=== PATIENT | female | born 1965 | race Caucasian/White ===

== ENCOUNTER 2019-10-30 20:29 | Inpatient (IN) ==
[2019-10-30 21:39] LABS: Appearance Urine Clear (Clear); Bilirubin Urine Negative (Negative); Blood Urine Negative (Negative); Color Urine Yellow; Glucose Urine UA 3+ (Negative); Ketones Urine Trace (Negative); Leukocyte Esterase Urine Negative (Negative); Nitrite Urine Negative (Negative); Protein Urine Negative (Negative); Specific Gravity Urine 1.026 (1.000-1.030); Urobilinogen Urine Negative (Negative)
[2019-10-30 21:40] LABS: Basophils # (auto) 0.01 K/uL (0-0.2); Basophils % (auto) 0.1 %; Eosinophils # (auto) 0.16 K/uL (0-0.5); Eosinophils % (auto) 1.8 %; Hematocrit (blood only) 49.6 % (37-47); Immature Granulocytes # (auto) 0.03 K/uL (0.00-0.02); Immature Granulocytes % (auto) 0.3 %; Lymphocytes # (auto) 2.77 K/uL (1.2-3.4); Lymphocytes % (auto) 31.7 %; Mean Corpuscular Hemoglobin 29.3 pg (25-34); Mean Corpuscular Hgb Conc 34.3 g/dL (32-36); Mean Corpuscular Volume 85.4 fL (80-100); Mean Platelet Volume 9.5 fL (7.4-10.4); Monocytes # (auto) 0.29 K/uL (0.11-0.59); Monocytes % (auto) 3.3 %; Neutrophils # (auto) 5.47 K/uL (1.4-6.5); Neutrophils % (auto) 62.8 %; Platelet Count 210 K/uL (130-400); RDW Coefficient of Variation 13.1 % (11.5-14.5); RDW Standard Deviation 40.6 fL (36.4-46.3); Red Blood Count 5.81 M/uL (4.2-5.4); White Blood Count 8.73 K/uL (4.8-10.8)
[2019-10-30 21:58] LABS: Albumin Level 3.4 gm/dl (3.4-5.0); BUN Creatinine Ratio 14.3 (10-20); Calcium 9.4 mg/dl (8.5-10.1); Creatinine Clr Calc Pharmacy 107.1 ml/min; Est GFR (Non-African American) 89.7; Potassium 3.9 mmol/L (3.5-5.1)
[2019-10-30 22:01] LABS: Amphetamines+Metham, Urine Neg (Neg); Barbiturates, Urine Neg (Neg); Benzodiazepine, Urine Neg (Neg); Cocaine, Urine Neg (Neg); MDMA (Ecstacy), Urine Neg (Neg); Methadone, Urine Neg (Neg); Opiate, Urine Neg (Neg); Phencyclidine, Urine Neg (Neg)
[2019-10-30 22:09] LABS: Albumin Globulin Ratio 0.9 (0.9-2); Bilirubin,Total 0.3 mg/dl (0.2-1); Globulin 3.9 gm/dl (2.5-4.0); Thyroid Stimulating Hormone 1.73 uIu/ml (0.300-4.500); Total Protein 7.3 gm/dl (6.4-8.2)
[2019-10-30 22:11] LABS: Acetaminophen < 2 ug/ml (10-30); Salicylate 2.4 mg/dl (2.8-20)
--- NOTE | 2019-10-30 22:19 | Emergency Department Note ---
Entered by Racquel Reyes acting as a scribe for Tahir Miller M.D. History of Present Illness General Chief complaint: Mental Health Evaluation Stated complaint: Mental Health Eval, preadmission at [facility] Time Seen by Provider: 10/30/19 20:58 Source: patient History of Present Illness Onset (ago): day(s) (several) Location: head Severity: similar to prior episodes Pain Consistency: + other (persistent) Quality: + other (suicidal ideations) Associated symptoms: + other (positive feeling overwhelmed; positive not sleeping well; positive thinking about "ending it all"; positive plan to overdose on pills or walk into traffic; negative suicide attempt; positive thoughts of "taking her grandchildren with her"; ) The patient is a 54 year old female with PMHx of diabetes and HTN who presents to the Emergency Room with complaints of persistent suicidal ideations that began several days prior to arrival. The patient states that over the last several weeks she has been feeling overwhelmed with life and "everything in general". The patient reports a lot of family stress, stating that she has custody of her 3 young grandchildren, one of which has serious health issues, and states that her youngest daughter recently moved back in with her. She states that she has not been sleeping well during this time. The patient states that over the past several days she has been thinking about "ending it all". She states that she has considered overdosing on pills or walking out into traffic. The patient states that she does not want to commit suicide as she "can't do that" to her grandchildren. She denies any attempts at suicide. The patient states that she has thought about taking the grandchildren "with her," but states "I can't do that, I care too much about them." The patient states that she has a therapist and psychiatrist, and states that after seeing her psychiatrist for feeling overwhelmed she was told to be seen in the ED if things became worse. The patient states that she was previously seen 27 years ago for similar symptoms, but states that she has not had symptoms since then. The patient denies drug or alcohol issues. Home Medications Home Medications Medication Instructions Recorded Confirmed Type Basalgar Insulin 40 units INJ BID 10/30/19 10/30/19 History atorvastatin 40 mg PO DAILY 10/30/19 10/30/19 History clonazepam [Klonopin] 0.5 mg PO BID 10/30/19 10/30/19 History lisinopril 2.5 mg PO DAILY 10/30/19 10/30/19 History venlafaxine [Effexor XR] 150 mg PO DAILY 10/30/19 10/30/19 History Allergies Allergy/AdvReac Type Severity Reaction Status Date / Time cephalexin [From Keflex] Allergy Hives Verified 10/30/19 22:09 naproxen AdvReac Gastrointestinal Verified 10/30/19 22:09 Upset Past Med/Surg History Medical History Diabetes Hypertension Family History Other No pertinent family history in first degree relatives Social History Preferred Language: [place] Island[place] Feels Safe at Home: Yes Smoking Status: Current every day smoker Tobacco Type: cigarettes ; Review of Systems See HPI for pertinent positives & negatives. and A total of 10 systems reviewed and were otherwise negative Physical Exam Vital Signs Vital Signs - 24 hr 10/30/19 20:30 10/31/19 00:14 Temperature 37.1 C Temperature Source Oral Pulse Rate 97 H Pulse Rate [Right Finger] 91 H Respiratory Rate 20 16 Respiratory Effort / Characteristics Non-Labored Spontaneous Respiratory Depth Normal Blood Pressure 128/88 Blood Pressure [Right Arm] 127/75 Blood Pressure Mean 101 Blood Pressure Mean [Right Arm] 92 Blood Pressure Position Lying Blood Pressure Position [Right Arm] Lying Pulse Oximetry 96 94 Oxygen Delivery Method Room Air Room Air Sepsis Recent Fever Within 48 Hours No Sepsis New/Unexplained Change in Mental Status No Sepsis Action Taken by Nursing No Action Required GENERAL: Awake, alert, on litter HENT: Normocephalic, atraumatic. EYES: Normal conjunctiva. Sclera non-icteric. RESPIRATORY: Clear to auscultation. No wheezes. Normal respiratory effort. CARDIAC: Normal rate. Normal rhythm. Extremities warm and well perfused. GI: Soft, non-distended. No tenderness to palpation. NEURO: Normal sensorium. No gross motor deficits noted. No facial droop. SKIN: Warm and dry. No rash or jaundice noted. PSYCH: Endorses SI with plan. Transient HI with grandchildren. Flat affect. Course Course 2102: Past medical records reviewed. The patient was evaluated in room A5. A complete history and physical exam was performed. 0056: I discussed the case with the psychiatric case planner who states that the patient has been accepted for further evaluation at [address] [place] [address]. Administered Medications Discontinued Medications Insulin Glargine (Lantus Per Unit) 40 units SQ NOW STA Stop: 10/30/19 23:49 Last Admin: 10/31/19 00:16 Dose: 40 units Documented by: [id number] Cosigned by: [id number] Non-Formulary Medication (Basalgar Insulin) 40 units INJ BID DIANA Stop: 11/29/19 23:44 Last Admin: 10/31/19 00:18 Dose: Not Given Documented by: [id number] Medical Decision Making Differential Diagnosis Differential diagnoses considered include mood disorder, infection, hypoglycemia, electrolyte abnormalities, cardiac sources, intracerebral event, toxicologic, neurologic, as well as others. Medical Records Attestation: I reviewed the patient's medical records. Home Medications Current Medication List: was personally reviewed by me Laboratory Data Attestation: I reviewed the patient's lab results. Result diagrams: 10/30/19 21:29 10/30/19 21:29 Lab Results 10/30/19 10/30/19 10/30/19 Range/Units 21:20 21:20 21:29 WBC 8.73 (4.8-10.8) K/uL RBC 5.81 H (4.2-5.4) M/uL Hgb 17.0 H (12.0-16.0) g/dL Hct 49.6 H (37-47) % MCV 85.4 (80-100) fL MCH 29.3 (25-34) pg MCHC 34.3 (32-36) g/dL RDW Std Deviation 40.6 (36.4-46.3) fL RDW Coeff of Donna 13.1 (11.5-14.5) % Plt Count 210 (130-400) K/uL MPV 9.5 (7.4-10.4) fL Immature Gran % (Auto) 0.3 % Neut % (Auto) 62.8 % Lymph % (Auto) 31.7 % Stanton % (Auto) 3.3 % Eos % (Auto) 1.8 % Baso % (Auto) 0.1 % Immature Gran # (Auto) 0.03 H (0.00-0.02) K/uL Neut # (Auto) 5.47 (1.4-6.5) K/uL Lymph # (Auto) 2.77 (1.2-3.4) K/uL Stanton # (Auto) 0.29 (0.11-0.59) K/uL Eos # (Auto) 0.16 (0-0.5) K/uL Baso # (Auto) 0.01 (0-0.2) K/uL Sodium (136-145) mmol/L Potassium (3.5-5.1) mmol/L Chloride (98-107) mmol/L Carbon Dioxide (21-32) mmol/L Anion Gap (3-11) BUN (7-18) mg/dl Creatinine (0.6-1.2) mg/dl Est Cr Clr Drug Dosing ml/min Est GFR ( Amer) Est GFR (Non-Af Amer) BUN/Creatinine Ratio (10-20) Glucose (70-99) mg/dl POC Glucose (70-99) Calcium (8.5-10.1) mg/dl Total Bilirubin (0.2-1) mg/dl AST (15-37) U/L ALT (12-78) U/L Alkaline Phosphatase (45-117) U/L Total Protein (6.4-8.2) gm/dl Albumin (3.4-5.0) gm/dl Globulin (2.5-4.0) gm/dl Albumin/Globulin Ratio (0.9-2) TSH (0.300-4.500) uIu/ml Urine Color Yellow Urine Appearance Clear (Clear) Urine pH 5.0 (4.5-7.5) Ur Specific [place] 1.026 (1.000-1.030) Urine Protein Negative (Negative) Urine Glucose (UA) 3+ H (Negative) Urine Ketones Trace H (Negative) Urine Blood Negative (Negative) Urine Nitrite Negative (Negative) Urine Bilirubin Negative (Negative) Urine Urobilinogen Negative (Negative) Ur Leukocyte Esterase Negative (Negative) Salicylates (2.8-20) mg/dl Urine Opiates Screen Neg (Neg) Ur Methadone, Qual Neg (Neg) Acetaminophen (10-30) ug/ml Urine Barbiturates Neg (Neg) Ur Phencyclidine (PCP) Neg (Neg) U Amphetamin/Meth Scrn Neg (Neg) MDMA (Ecstasy) Screen Neg (Neg) U Benzodiazepines Scrn Neg (Neg) Ur Cocaine Metabolite Neg (Neg) U Marijuana (THC) Screen Neg (Neg) Ethyl Alcohol mg/dL (0-3) mg/dl 10/30/19 10/30/19 10/30/19 Range/Units 21:29 21:29 21:29 WBC (4.8-10.8) K/uL RBC (4.2-5.4) M/uL Hgb (12.0-16.0) g/dL Hct (37-47) % MCV (80-100) fL MCH (25-34) pg MCHC (32-36) g/dL RDW Std Deviation (36.4-46.3) fL RDW Coeff of Donna (11.5-14.5) % Plt Count (130-400) K/uL MPV (7.4-10.4) fL Immature Gran % (Auto) % Neut % (Auto) % Lymph % (Auto) % Stanton % (Auto) % Eos % (Auto) % Baso % (Auto) % Immature Gran # (Auto) (0.00-0.02) K/uL Neut # (Auto) (1.4-6.5) K/uL Lymph # (Auto) (1.2-3.4) K/uL Stanton # (Auto) (0.11-0.59) K/uL Eos # (Auto) (0-0.5) K/uL Baso # (Auto) (0-0.2) K/uL Sodium 134 L (136-145) mmol/L Potassium 3.9 (3.5-5.1) mmol/L Chloride 100 (98-107) mmol/L Carbon Dioxide 27 (21-32) mmol/L Anion Gap 7.0 (3-11) BUN 11 (7-18) mg/dl Creatinine 0.75 (0.6-1.2) mg/dl Est Cr Clr Drug Dosing 107.1 ml/min Est GFR ( Amer) 104.0 Est GFR (Non-Af Amer) 89.7 BUN/Creatinine Ratio 14.3 (10-20) Glucose 297 H (70-99) mg/dl POC Glucose (70-99) Calcium 9.4 (8.5-10.1) mg/dl Total Bilirubin 0.3 (0.2-1) mg/dl AST 13 L (15-37) U/L ALT 23 (12-78) U/L Alkaline Phosphatase 162 H (45-117) U/L Total Protein 7.3 (6.4-8.2) gm/dl Albumin 3.4 (3.4-5.0) gm/dl Globulin 3.9 (2.5-4.0) gm/dl Albumin/Globulin Ratio 0.9 (0.9-2) TSH 1.730 (0.300-4.500) uIu/ml Urine Color Urine Appearance (Clear) Urine pH (4.5-7.5) Ur Specific [place] (1.000-1.030) Urine Protein (Negative) Urine Glucose (UA) (Negative) Urine Ketones (Negative) Urine Blood (Negative) Urine Nitrite (Negative) Urine Bilirubin (Negative) Urine Urobilinogen (Negative) Ur Leukocyte Esterase (Negative) Salicylates 2.4 L (2.8-20) mg/dl Urine Opiates Screen (Neg) Ur Methadone, Qual (Neg) Acetaminophen < 2 L (10-30) ug/ml Urine Barbiturates (Neg) Ur Phencyclidine (PCP) (Neg) U Amphetamin/Meth Scrn (Neg) MDMA (Ecstasy) Screen (Neg) U Benzodiazepines Scrn (Neg) Ur Cocaine Metabolite (Neg) U Marijuana (THC) Screen (Neg) Ethyl Alcohol mg/dL < 3.0 (0-3) mg/dl 10/30/19 Range/Units 23:35 WBC (4.8-10.8) K/uL RBC (4.2-5.4) M/uL Hgb (12.0-16.0) g/dL Hct (37-47) % MCV (80-100) fL MCH (25-34) pg MCHC (32-36) g/dL RDW Std Deviation (36.4-46.3) fL RDW Coeff of Odnna (11.5-14.5) % Plt Count (130-400) K/uL MPV (7.4-10.4) fL Immature Gran % (Auto) % Neut % (Auto) % Lymph % (Auto) % Stanton % (Auto) % Eos % (Auto) % Baso % (Auto) % Immature Gran # (Auto) (0.00-0.02) K/uL Neut # (Auto) (1.4-6.5) K/uL Lymph # (Auto) (1.2-3.4) K/uL Stanton # (Auto) (0.11-0.59) K/uL Eos # (Auto) (0-0.5) K/uL Baso # (Auto) (0-0.2) K/uL Sodium (136-145) mmol/L Potassium (3.5-5.1) mmol/L Chloride (98-107) mmol/L Carbon Dioxide (21-32) mmol/L Anion Gap (3-11) BUN (7-18) mg/dl Creatinine (0.6-1.2) mg/dl Est Cr Clr Drug Dosing ml/min Est GFR ( Amer) Est GFR (Non-Af Amer) BUN/Creatinine Ratio (10-20) Glucose (70-99) mg/dl POC Glucose 252 H (70-99) Calcium (8.5-10.1) mg/dl Total Bilirubin (0.2-1) mg/dl AST (15-37) U/L ALT (12-78) U/L Alkaline Phosphatase (45-117) U/L Total Protein (6.4-8.2) gm/dl Albumin (3.4-5.0) gm/dl Globulin (2.5-4.0) gm/dl Albumin/Globulin Ratio (0.9-2) TSH (0.300-4.500) uIu/ml Urine Color Urine Appearance (Clear) Urine pH (4.5-7.5) Ur Specific [place] (1.000-1.030) Urine Protein (Negative) Urine Glucose (UA) (Negative) Urine Ketones (Negative) Urine Blood (Negative) Urine Nitrite (Negative) Urine Bilirubin (Negative) Urine Urobilinogen (Negative) Ur Leukocyte Esterase (Negative) Salicylates (2.8-20) mg/dl Urine Opiates Screen (Neg) Ur Methadone, Qual (Neg) Acetaminophen (10-30) ug/ml Urine Barbiturates (Neg) Ur Phencyclidine (PCP) (Neg) U Amphetamin/Meth Scrn (Neg) MDMA (Ecstasy) Screen (Neg) U Benzodiazepines Scrn (Neg) Ur Cocaine Metabolite (Neg) U Marijuana (THC) Screen (Neg) Ethyl Alcohol mg/dL (0-3) mg/dl Blood Pressure Blood Pressure Findings: Elevated blood pressure Blood Pressure Disposition: elevated BP felt to be situational MDM Narrative Patient is a 54-year-old female presenting today referred from the [facility] due to worsening depression with suicidal and some transient homicidal thoughts. States lots of stress at home regarding her grandchildren prickly one with medical problems. States that over the last several days has thoughts of either overdosing on medications or walking in front of him truck on the road. States she had transiently thought it may be taking her grandchildren with her but states she would not do that. Denies attempts. Distant history of similar several decades ago. Currently sees a counselor and psychiatrist in [place]. States compliance with home medication. Medical clearance completed. Seen by psychiatric case planner. Patient is agreeable for voluntary inpatient t reatment I believe this is indicated given her suicidal thoughts and tendencies as well as the statements although transient of possible concern for her grandchildren who live with her. Bed search was initiated. Referral to [facility] was made. Given her evening dose of insulin. Patient was accepted to [facility] for further inpatient psychiatric care on a 201. Impression & Plan Feeling suicidal, Mood disorder Discharge Plan Visit Data *Final* Discharge Date/Time: 10/31/19 01:01 Chief Complaint: Mental Health Evaluation Stated Complaint: Mental Health Eval, preadmission at [facility] ED Provider: Tahir Miller Discharge Problem: Feeling suicidal, Mood disorder Patient Disposition: Admitted As Inpatient Discharge Instructions Interventions: ED Discharge Assessment Last Done: 10/31/19 01:01 The celestino's documentation has been prepared under my direction and personally reviewed by me in its entirety. I confirm that the note above accurately reflects all work, treatment, procedures, and medical decision making performed by me.
[2019-10-30] MEDS ORDERED: INSULIN GLARGINE INJ SCH (23:45)
[2019-10-30] MEDS ORDERED: [UNRECOGNIZED DRUG - OTHER] INJ SCH (23:45)
[2019-10-30] MEDS ORDERED: LANTUS PER UNIT CHARGE SQ STA (23:48)
[2019-10-31] MEDS ORDERED: BISMUTH SUBSALICYLATE PER ML OMNICELL CHARGE PO PRN (01:35)
[2019-10-31] MEDS ORDERED: MAGNESIUM HYDROXIDE SUSP 30 ML UDC PO PRN (01:35)
[2019-10-31] MEDS ORDERED: NICOTINE POLACRILEX 2 MG GUM MT PRN (01:35)
[2019-10-31] MEDS ORDERED: ALUMINUM/MAGNESIUM SUSP 30 ML UDC PO PRN (01:35)
[2019-10-31] MEDS ORDERED: hydrOXYzine HCl 10 MG TAB PO PRN (01:35)
[2019-10-31] MEDS ORDERED: SODIUM CHLORIDE 0.65% NA SOLN 45 ML (OCEAN) PRN (01:35)
[2019-10-31] MEDS ORDERED: ACETAMINOPHEN 325 MG TAB PO PRN (01:35)
[2019-10-31] MEDS ORDERED: GLUCAGON FOR INJ 1 MG VIAL IM PRN (04:00)
[2019-10-31] MEDS ORDERED: GLUCOSE 40% GEL 15 GM TUBE PO PRN (04:00)
[2019-10-31] MEDS ORDERED: CARBOHYDRATES FOR HYPOGLYCEMIA PO PRN (04:00)
[2019-10-31] MEDS ORDERED: GLUCOSE 10 TABS/TUBE PO PRN (04:00)
[2019-10-31] MEDS ORDERED: DEXTROSE 50% 50 ML SYRINGE IV PRN (04:00)
[2019-10-31 06:12] LABS: Estimated Average Glucose 272 mg/dl; Hemoglobin A1C 11.1 % (4.5-5.6)
[2019-10-31] MEDS: VENLAFAXINE HCL XR 150 MG CAPXR PO SCH (08:28)
--- NOTE | 2019-10-31 08:33 | History & Physical ---
Date of Service October 31, 2019 Impression / Recommendations Impression 54-year-old female with a history of depression, anxiety, and poorly controlled diabetes who presents with worsening mood and suicidal ideation in the context of multiple psychosocial stressors. She agreed to venlafaxine titration, and would like to explore ways to manage stressors at home, including custody of 3 young grandchildren, 1 of whom has severe medical problems, and difficulties with adult daughter with BPD who is living with them and is disruptive. We will involve the diabetic pharmacist and educated her regarding her poorly controlled diabetes, and will explore ways to increase her supports at home. Inpatient treatment is medically necessary due to the severity of symptoms and risk for suicide if discharged prematurely. (1) Depression: 10/31 - Reviewed diagnosis and treatment options, including medication, therapy, and discussion of psychosocial stressors/supports. - Increase venlafaxine XR to 225mg daily to target mood and anxiety. -Continue home dose of clonazepam. -Coordinate w/ OP psychiatrist and therapist, explore options to increase supports (?BCM) -Family meeting with . Depression Type: major depressive disorder Major depression recurrence: recurrent Active/Remission status: currently active Major depression episode severity: severe Psychotic features: without psychotic features Qualified Code(s): F33.2 - Major depressive disorder, recurrent severe without psychotic features Present on Admission?: Yes (2) Anxiety: 10/31 - Increase SNRI as above, continue clonazepam. -Encourage group attendance and participation, work on healthy coping skills and discharge safety. Present on Admission?: Yes (3) Diabetes: 10/31 -continue insulin, consult diabetic pharmacist, provide diabetes education. -Diabetic diet. Present on Admission?: Yes (4) Hypertension: Present on Admission?: Yes Inventory Assets Strengths: Willing for treatment, supportive , has outpatient providers Needs: Improved supports and coping mechanisms Risk Factors Assessment Male: No : Yes Do You Have Access To A Gun?: No Health Problems: Yes Mental Health Diagnoses: Yes Substance Use Disorders: No Previous Attempt: No Family History of Suicide: No Previous Psychiatric Hospitalization: Yes Hopelessness: Yes Smoker: Yes Protective Factors Assessment : Yes Responsible for Young Children: Yes Employed: No Stable Relationships: Yes Supportive Family: No Good Rapport with Provider: Yes Psychiatric History Identifying Data CARLOS JONES is a 54-year-old F who currently lives in [place] with her and 3 grandchildren, has a history of depression and anxiety, and was admitted on 10/31/19 00:48 on a 201 voluntary commitment for suicidal ideation with multiple plans. Chief Complaint "Feeling overwhelmed for a couple of weeks, and last few days I just been thinki ng of ways I could end it". History of Present Illness Patient presented to the ER 10/30/19 with worsening depression and suicidal ideation. She had gone to [place] and was sent to the ER as they had no beds. Her admission labs were normal with the exception of Hgb A1C of 11.1%. On my assessment , she reports depression has been worsening for the past few weeks in the context of multiple stressors - states both of her daughters have BPD, and one also has schizoaffective d/o, and the patient and her have custody of her 3 young children and are rasing them, while her other daughter just moved back in with them and has been "screaming at me and the kids a lot." One of her grandchildren has severe diabetes and is on dialysis, waiting for a kidney transplant. States she has been thinking about wants to end her life as she feels so overwhelmed, including overdosing on medication or walking into traffic. She even thought about "taking them with me," meaning her grandchildren, but says she has not plan or intent to do that, "I would never hurt them." She sought treatment as she did not want to hurt herself or anyone else, and states her grandchildren are protective. States her daughter makes promises to her children that she can't uphold, and this upsets the children. She reports poor self care, not eating properly, poor sleep (staying up late, waking up after a few hours), low energy, anxiety with "mind racing all the time," and feeling "everyone wants something from me, I don't get anything back from anybody, and don't have anything left to give." States she was brought up "if you get sick, you just keep going, have to be the strong one." Has been taking clonazepam twice a day recently. Reports being on venlafaxine for over year, and thinks her dose was increased a few months ago. Denies h/o psychosis, luis, PTSD. Past Psychiatric History Current Psychiatric Diagnosis: Major Depressive Disorder Outpatient Services: Psychiatrist Dr. Chandler and therapist at [facility] in [place] Previous Psych Admissions: [facility] 27 years ago for SI Do You Have Access To A Gun?: No History of Previous Suicide Attempt: No Past Medication Trials: fluoxetine - ineffective May be others, can't recall Allergies Allergy/AdvReac Type Severity Reaction Status Date / Time cephalexin [From Keflex] Allergy Hives Verified 10/30/19 22:09 naproxen AdvReac Gastrointestinal Verified 10/30/19 22:09 Upset Home Medications Home Medications Medication Instructions Recorded Confirmed Type Basalgar Insulin 40 units INJ BID 10/30/19 10/30/19 History atorvastatin 40 mg PO DAILY 10/30/19 10/30/19 History clonazepam [Klonopin] 0.5 mg PO BID 10/30/19 10/30/19 History lisinopril 2.5 mg PO DAILY 10/30/19 10/30/19 History venlafaxine [Effexor XR] 150 mg PO DAILY 10/30/19 10/30/19 History Family History Family History of: Other-List under Comment Family Mental Health History Comment: Daughter: BPD, Depression, ?schizoaffective Other daughter with BPD Alcohol History Hx of Alcohol Use Over the Past 12 Months: No Smoking Use Have You Smoked or Used Tobacco Products in the Last 30 Days: Yes tobacco type: cigarettes Smoking Status: Current every day smoker Smoking packs per day: 0.75 Substance History Hx of Prescription Med Misuse Over the Past 12 Months: No Hx of Over the Counter Med Misuse Over the Past 12 Months: No Hx of Inhalent Misuse Over the Past 12 Months: No Hx of Organic Substance Use Over the Past 12 Months: No Hx of Illegal Substances/Street Drug Use Over Past 12 Months: No Problems as a Result of Past Substance Use: None Identified Personal History Living Arrangements: Home Living Arrangements Comments: in [place] with , 3 grandchildren, and their adult daughter and son (32) Childhood: Father was in the , so "grew up everywhere." Highest Grade Completed: High School Graduate Highest Grade Completed Comment: Denies that she was in special education classes Employment Status: Disabled ("arthritis and my legs") Marital Status: Number Of Children: 4 Beliefs That Will Affect Care: None Current Legal Problems: No Hx Traumatic Life Events: No Patient History Medical History Diabetes Hypertension Family History Other No pertinent family history in first degree relatives Social History Preferred Language: Bermudian Communication Ability: Effective Train Reservation Clerk Required: No Beliefs That Will Affect Care: None Feels Safe at Home: Yes Smoking Status: Current every day smoker Tobacco Type: cigarettes ; Review of Systems Review of Systems: All systems reviewed & are unremarkable except as noted in HPI & below chronic shoulder, hip, hand, knee, ankle pain Physical Exam Psychiatric: Orientation: alert, oriented x 3 and cooperative Obese, older than states age, braless. Walks slowly with cane. Eye Contact: + fair eye contact Motor Behavior: no abnormal motor movements slowed speech, soft Affect: + depressed affect, + constricted affect and mood congruent with affect Mood: + depressed mood Thought Process: goal directed thought process and + concrete thought process Thought Content: + hopelessness and + guilt Suicidal Thoughts: + reports suicidal thoughts Homicidal Thoughts: denies homicidal thoughts Hallucinations: no auditory hallucinations and no visual hallucinations Cognition: recent memory grossly intact, remote memory grossly intact, attention grossly intact and language grossly intact Insight: + fair insight Judgement: + fair judgement Vital Signs (Past 24 Hours): Last Vital Signs Temp 36.7 C 10/31/19 06:00 Pulse 103 H 10/31/19 06:00 Resp 18 10/31/19 06:00 BP 133/82 10/31/19 06:00 Pulse Ox 95 10/31/19 01:44 Exam Statement: A physical exam was performed in the ER prior to admission to the unit by Dr. Miller. I accept that physical as correct/medical clearance for the inpatient physical exam. Results & Data Laboratory Results Laboratory Results - last 24 hr 10/30/19 10/30/19 10/30/19 21:20 21:20 21:29 WBC 8.73 RBC 5.81 H Hgb 17.0 H Hct 49.6 H MCV 85.4 MCH 29.3 MCHC 34.3 RDW Std Deviation 40.6 RDW Coeff of Donna 13.1 Plt Count 210 MPV 9.5 Immature Gran % (Auto) 0.3 Neut % (Auto) 62.8 Lymph % (Auto) 31.7 [place] % (Auto) 3.3 Eos % (Auto) 1.8 Baso % (Auto) 0.1 Immature Gran # (Auto) 0.03 H Neut # (Auto) 5.47 Lymph # (Auto) 2.77 [place] # (Auto) 0.29 Eos # (Auto) 0.16 Baso # (Auto) 0.01 Sodium Potassium Chloride Carbon Dioxide Anion Gap BUN Creatinine Est Cr Clr Drug Dosing Est GFR ( Amer) Est GFR (Non-Af Amer) BUN/Creatinine Ratio Glucose POC Glucose Estimat Average Glucose Hemoglobin A1c Calcium Total Bilirubin AST ALT Alkaline Phosphatase Total Protein Albumin Globulin Albumin/Globulin Ratio TSH Urine Color Yellow Urine Appearance Clear Urine pH 5.0 Ur Specific [place] 1.026 Urine Protein Negative Urine Glucose (UA) 3+ H Urine Ketones Trace H Urine Blood Negative Urine Nitrite Negative Urine Bilirubin Negative Urine Urobilinogen Negative Ur Leukocyte Esterase Negative Salicylates Urine Opiates Screen Neg Ur Methadone, Qual Neg Acetaminophen Urine Barbiturates Neg Ur Phencyclidine (PCP) Neg U Amphetamin/Meth Scrn Neg MDMA (Ecstasy) Screen Neg U Benzodiazepines Scrn Neg Ur Cocaine Metabolite Neg U Marijuana (THC) Screen Neg Ethyl Alcohol mg/dL 10/30/19 10/30/19 10/30/19 21:29 21:29 21:29 WBC RBC Hgb Hct MCV MCH MCHC RDW Std Deviation RDW Coeff of Donna Plt Count MPV Immature Gran % (Auto) Neut % (Auto) Lymph % (Auto) [place] % (Auto) Eos % (Auto) Baso % (Auto) Immature Gran # (Auto) Neut # (Auto) Lymph # (Auto) [place] # (Auto) Eos # (Auto) Baso # (Auto) Sodium 134 L Potassium 3.9 Chloride 100 Carbon Dioxide 27 Anion Gap 7.0 BUN 11 Creatinine 0.75 Est Cr Clr Drug Dosing 107.1 Est GFR ( Amer) 104.0 Est GFR (Non-Af Amer) 89.7 BUN/Creatinine Ratio 14.3 Glucose 297 H POC Glucose Estimat Average Glucose Hemoglobin A1c Calcium 9.4 Total Bilirubin 0.3 AST 13 L ALT 23 Alkaline Phosphatase 162 H Total Protein 7.3 Albumin 3.4 Globulin 3.9 Albumin/Globulin Ratio 0.9 TSH 1.730 Urine Color Urine Appearance Urine pH Ur Specific [place] Urine Protein Urine Glucose (UA) Urine Ketones Urine Blood Urine Nitrite Urine Bilirubin Urine Urobilinogen Ur Leukocyte Esterase Salicylates 2.4 L Urine Opiates Screen Ur Methadone, Qual Acetaminophen < 2 L Urine Barbiturates Ur Phencyclidine (PCP) U Amphetamin/Meth Scrn MDMA (Ecstasy) Screen U Benzodiazepines Scrn Ur Cocaine Metabolite U Marijuana (THC) Screen Ethyl Alcohol mg/dL < 3.0 10/30/19 10/30/19 10/31/19 21:29 23:35 08:08 WBC RBC Hgb Hct MCV MCH MCHC RDW Std Deviation RDW Coeff of Donna Plt Count MPV Immature Gran % (Auto) Neut % (Auto) Lymph % (Auto) [place] % (Auto) Eos % (Auto) Baso % (Auto) Immature Gran # (Auto) Neut # (Auto) Lymph # (Auto) [place] # (Auto) Eos # (Auto) Baso # (Auto) Sodium Potassium Chloride Carbon Dioxide Anion Gap BUN Creatinine Est Cr Clr Drug Dosing Est GFR ( Amer) Est GFR (Non-Af Amer) BUN/Creatinine Ratio Glucose POC Glucose 252 H 145 H Estimat Average Glucose 272 Hemoglobin A1c 11.1 H Calcium Total Bilirubin AST ALT Alkaline Phosphatase Total Protein Albumin Globulin Albumin/Globulin Ratio TSH Urine Color Urine Appearance Urine pH Ur Specific [place] Urine Protein Urine Glucose (UA) Urine Ketones Urine Blood Urine Nitrite Urine Bilirubin Urine Urobilinogen Ur Leukocyte Esterase Salicylates Urine Opiates Screen Ur Methadone, Qual Acetaminophen Urine Barbiturates Ur Phencyclidine (PCP) U Amphetamin/Meth Scrn MDMA (Ecstasy) Screen U Benzodiazepines Scrn Ur Cocaine Metabolite U Marijuana (THC) Screen Ethyl Alcohol mg/dL Current Inpatient Medications Current Inpatient Medications: Current Inpatient Medications Acetaminophen (Tylenol) 650 mg PO Q4H PRN PRN Reason: Headache or Minor Fever Stop: 11/30/19 01:34 Al Hydrox/Mg Hydrox/Simethicone (Maalox) 30 ml PO Q4H PRN PRN Reason: GI Upset Stop: 11/30/19 01:34 Atorvastatin Calcium (Lipitor) 40 mg PO HS DIANA Stop: 11/30/19 21:59 Bismuth Subsalicylate (Kaopectate) 15 ml PO PRN PRN PRN Reason: Loose Stool Stop: 11/30/19 01:34 Clonazepam (Klonopin) 0.5 mg PO BID DIANA Stop: 11/30/19 08:59 Dextrose (Dextrose 50%) 25 - 50 ml IV UD PRN; Protocol PRN Reason: Hypoglycemia Protocol Stop: 11/30/19 03:59 Glucagon (Glucagen) 1 mg IM UD PRN; Protocol PRN Reason: Hypoglycemia Protocol Stop: 11/30/19 03:59 Glucose (Glucose 40%) 15 - 30 gm PO UD PRN; Protocol PRN Reason: Hypoglycemia Protocol Stop: 11/30/19 03:59 Glucose (Dex4 Glucose) 4 - 8 tabs PO UD PRN; Protocol PRN Reason: Hypoglycemia Protocol Stop: 11/30/19 03:59 Hydroxyzine HCl (Vistaril) 50 mg PO HSZ PRN PRN Reason: Insomnia Stop: 11/30/19 01:34 Hydroxyzine HCl (Vistaril) 25 mg PO Q4H PRN PRN Reason: Anxiety Stop: 11/30/19 01:34 Insulin Glargine (Lantus Solostar Pen) 40 units SQ BID [facility] Stop: 11/30/19 08:59 [facility]inop[facility]) [facility] Stop: 11/30/19 08:59 Magnesium Hydroxide (Milk Of Magnesia) 30 ml PO DAILY PRN PRN Reason: Constipation Stop: 11/30/19 01:34 Miscellaneous (Remove Nicoderm Patch) 1 ea N/A DAILY@0859 [facility] Stop: 11/30/19 08:58 Miscellaneous (Carbohydrates For Hypoglycemia) 15 - 30 gm PO UD PRN PRN Reason: Hypoglycemia Treatment Stop: 11/30/19 03:59 Nicotine (Nicoderm Cq) 14 mg TD [facility] Stop: 11/30/19 08:59 Nicotine Polacrilex (Nicorette 2mg) 1 piece MT PRN PRN PRN Reason: Nicotine Withdrawal Stop: 11/30/19 01:34 Sodium Chloride (Early Nasal) 1 - 2 sprays NA PRN PRN PRN Reason: Nasal Dryness/Congestion Stop: 11/30/19 01:34 Venlafaxine HCl (Effexor Extended Release) 150 mg PO QAM [facility] Stop: 11/30/19 08:59
[2019-10-31] MEDS: NICOTINE 14 MG/24 HR PATCH TD SCH (08:35)
[2019-10-31] MEDS: clonazePAM 0.5 MG TAB PO SCH ×2 (08:36→21:45)
[2019-10-31] MEDS ORDERED: INSULIN GLARGINE SOLOSTAR 100 UNITS/ML 3 ML PEN SQ SCH (09:00)
[2019-10-31] MEDS ORDERED: PHARMACY GLYCEMIC MGMT CONSULT PRN (10:28)
[2019-10-31] MEDS: VENLAFAXINE HCL XR 75 MG CAPXR PO SCH (11:44)
[2019-10-31] MEDS: INSULIN ASPART 100 UNITS/ML 3 ML PEN SC SCH ×3 (13:26→21:52)
--- NOTE | 2019-10-31 13:42 | Pharmacy Report ---
Glycemic Control Consultation - Date of Service October 31, 2019 - Scope Scope: Glycemic Pharmacist consulted by Dr Cintron on 10/31/19 for glycemic control and to write orders per [facility] inpatient glycemic control protocol - Objective Weight: 119.7 kg Accuchecks BSG (last 24hrs): 10/30/19 10/30/19 10/31/19 21:29 23:35 08:08 Glucose 297 H POC Glucose 252 H 145 H 10/31/19 12:32 Glucose POC Glucose 208 H Laboratory Data (last 24hrs): 10/30/19 21:29 Potassium 3.9 Carbon Dioxide 27 Anion Gap 7.0 Creatinine 0.75 Est Cr Clr Drug Dosing 107.1 HbA1c: Hemoglobin A1c 11.1 % (4.5-5.6) H 10/30/19 21:29 - Recent Pertinent Medications Outpatient Anti-diabetic Regimen: * Basaglar 40 units SC BID * A1c = 11.1 % 10/30/19 The patient is currently receiving: * Basal insulin: Lantus 40 units every 12 hours Risk Factors for Insulin Resistance: * Diet: T2DM - Assessment & Plan Assessment & Plan: ASSESSMENT: * LL is a 54 year old female patient who presented to [facility] on 10/30/19 with worsening mood and suicidal ideation * Patient has poorly controlled diabetes as an outpatient based on A1c of 11.1% * Of note: patient has multiple current psychosocial stressors, which may be negatively affecting her ability to manage her diabetes * Patient received 80 units of basal insulin yesterday (equivalent to outpatient dose), no Novolog ordered at time of consult * BSG on admission was 297 mg/dL * Fasting BSG this morning of 145 mg/dL PLAN FOR INPATIENT GLYCEMIC CONTROL: * Basal insulin * Lantus 40 units given this morning * Lantus scale for this evening * -20 units if BSG 140 mg/dL or less * -30 units if BSG 141-199 mg/dL * -40 units if BSG 200 mg/dL or above * Bolus insulin * NovoLog per scale ACHS or Q6hrs while NPO * Goal Range: Low 110 mg/dL - High 140 mg/dL * Correction Factor: 20 mg/dL/unit * Nutritional / Prandial insulin per carb ratio of 1 unit per 7 grams CHO consumed * Please note that the plan above was derived based on current level of insulin resistance and hospital stress. These recommendations are appropriate for inpatient admission only. Plan of care upon discharge will need to be reassessed to avoid potential outpatient hypo/hyperglycemia. Thank you.
[2019-10-31] MEDS: ATORVASTATIN 40 MG TAB PO SCH (21:45)
[2019-10-31] MEDS: INSULIN GLARGINE SOLOSTAR 100 UNITS/ML 3 ML PEN SQ SCH (21:54)
[2019-11-01] MEDS: VENLAFAXINE HCL XR 150 MG CAPXR PO SCH (08:28)
[2019-11-01] MEDS: VENLAFAXINE HCL XR 75 MG CAPXR PO SCH (08:29)
[2019-11-01] MEDS ORDERED: INSULIN GLARGINE SOLOSTAR 100 UNITS/ML 3 ML PEN SQ ONE ×2 (08:30→08:45)
[2019-11-01] MEDS: clonazePAM 0.5 MG TAB PO SCH ×2 (08:33→22:01)
[2019-11-01] MEDS: NICOTINE 14 MG/24 HR PATCH TD SCH (08:33)
[2019-11-01] MEDS: INSULIN ASPART 100 UNITS/ML 3 ML PEN SC SCH ×4 (08:48→22:04)
--- NOTE | 2019-11-01 09:52 | Pharmacy Report ---
Pharmacy Glycemic Short Note 2 - Date of Service November 01, 2019 - Glycemic Short BSG Results (Last 24 hours): 10/31/19 10/31/19 10/31/19 12:32 17:15 21:02 POC Glucose 208 H 153 H 142 H 11/01/19 08:00 POC Glucose 99 OUTPATIENT ANTIDIABETIC REGIMEN: * Basaglar 40 units SC BID * A1c = 11.1 % 10/30/19 ASSESSMENT: * LL is a 54 year old female patient who presented to [facility] on 10/30/19 with worsening mood and suicidal ideation * Patient has poorly controlled diabetes as an outpatient based on A1c of 11.1% * Of note: patient has multiple current psychosocial stressors, which may be negatively affecting her ability to manage her diabetes * BSGs yesterday ranging 142-208 mg/dL * Patient received 99 units of insulin (70 of which were basal) * Fasting BSG this morning of 99 mg/dL PLAN FOR INPATIENT GLYCEMIC CONTROL: * Hold outpatient oral diabetes medications * Basal insulin * Lantus 30 units SQ this morning * Lantus scale HS * -20 units - BSG 120 mg/dL or below * -30 units - BSG 121-179 mg/dL * -40 units - BSG 180 mg/dL or above * Bolus insulin * NovoLog per scale ACHS or Q6hrs while NPO * Goal Range: Low 110 mg/dL - High 140 mg/dL * Correction Factor: 20 mg/dL/unit * Nutritional / Prandial insulin per carb ratio of 1 unit per 7 grams CHO consumed PLAN FOR DISCHARGE: * Reasonable A1c goal for most non- adults is less than 7% * Patient's A1c of 11.1% demonstrates poor glycemic control as an outpatient * Agree with note from diabetes educator regarding a GLP-1 agonist. Especially given her multiple psychosocial stressors - a once-weekly GLP-1 agonist may be a good option for this patient to achieve better glycemic control - provided one will be covered by her insurance. * These medications have high efficacy, low risk of hypoglycemia, can aid in weight loss, and decrease major cardiovascular events * Encourage patient to speak with managing provider/MTM pharmacist regarding GLP-1 agonist * Basaglar dose may also need to be adjusted - will follow while inpatient
--- NOTE | 2019-11-01 12:51 | Psychiatric Progress Note ---
Date of Service November 01, 2019 Impression / Recommendations Impression 54-year-old female with a history of depression, anxiety, and poorly controlled diabetes who presents with worsening mood and suicidal ideation in the context of multiple psychosocial stressors. She agreed to venlafaxine titration, and would like to explore ways to manage stressors at home, including custody of 3 young grandchildren, 1 of whom has severe medical problems, and difficulties with adult daughter with BPD who is living with them and is disruptive. We will involve the diabetic pharmacist and educated her regarding her poorly controlled diabetes, and will explore ways to increase her supports at home. Inpatient treatment is medically necessary due to the severity of symptoms and risk for suicide if discharged prematurely. (1) Depression: 10/31 - Reviewed diagnosis and treatment options, including medication, therapy, and discussion of psychosocial stressors/supports. - Increase venlafaxine XR to 225mg daily to target mood and anxiety. -Continue home dose of clonazepam. -Coordinate w/ OP psychiatrist and therapist, explore options to increase supports (?BCM) -Family meeting with . 11/01 - Continue mediations as adjusted above - Phone meeting with still needs scheduled - Coordinate care and offer encouragement for more routine outpatient treatment - Pt was agreeable with considering case management referral (2) Anxiety: 10/31 - Increase SNRI as above, continue clonazepam. -Encourage group attendance and participation, work on healthy coping skills and discharge safety. (3) Diabetes: 10/31 -continue insulin, consult diabetic pharmacist, provide diabetes education. -Diabetic diet. (4) Hypertension: 11/01 - Continue home dose of lisinopril 2.5mg daily Inventory Assets Strengths: Willing for treatment, supportive , has outpatient providers Needs: Improved supports and coping mechanisms Risk Factors Assessment Male: No : Yes Do You Have Access To A Gun?: No Health Problems: Yes Mental Health Diagnoses: Yes Substance Use Disorders: No Previous Attempt: No Family History of Suicide: No Previous Psychiatric Hospitalization: Yes Hopelessness: Yes Smoker: Yes Protective Factors Assessment : Yes Responsible for Young Children: Yes Employed: No Stable Relationships: Yes Supportive Family: No Good Rapport with Provider: Yes Interval History Identifying Information CARLOS JONES is a 54-year-old F who currently lives in [place] with her and 3 grandchildren, has a history of depression and anxiety, and was admitted on 10/31/19 00:48 on a 201 voluntary commitment for suicidal ideation with multiple plans. Chief Complaint "I feel pretty good. I think things are getting better." Review of Systems Notes Constitutional: denied Cardiovascular: denied Respiratory: denied Gastrointestinal: denied Neurological: denied Psychiatric: denies symptoms other than stated above Total of at least 10 systems reviewed, pertinent positives as above and in HPI. Sleep Information Total Hours of Sleep: 6 Sleep Comments: admitted at 0113 Meal Information Percent Meal Consumed - Breakfast: 100 Percent Meal Consumed - Lunch: 75 Percent Meal Consumed - Dinner: 100 Subjective Subjective Patient was seen & assessed and interval progress reviewed with nursing and social work. Staff report the patient has continued to process various home stressors. She rated her mood a 6/10 and "anxious" last evening. Pt is hoping to have a phone meeting scheduled with her to review safety and discharge planning. Pt was seen today to assess progress since admission. She states that she is feeling "pretty good" today, noticing improvement since yesterday. Pt shares with this provider that her informed her that [facility] will be presenting to their home today to complete an evaluation. We reviewed that the service may be able to identify supports the family would benefit from. Although patient is anxious about the situation, she sees where the evaluation may be helpful. Pt denies SI since yesterday, and is only beginning to report mildly increased hopefulness. Pt is agreeable with more frequent therapy visits and states she would even consider a outpatient case manager - stating she had this service in the past. Pt is agreeable with involving her in a family meeting - stating it will likely need to be done by phone. She denies other needs or concerns today. Physical Exam Psychiatric Orientation: alert, oriented x 3 and cooperative (and pleasant) Apperance: appropriately dressed, appropriately groomed and appeared stated age Eye Contact: good eye contact Motor Behavior: steady gait and station and no abnormal motor movements Speech: normal rate/rhythm/volume of speech Affect: + depressed affect (appearing mildly improved today) and mood congruent with affect Mood: + depressed mood ("getting better") and + anxious mood Thought Process: goal directed thought process, clear/coherent thought process and thought association intact Thought Content: reality based without delusions Suicidal Thoughts: denies suicidal thoughts and denies suicidal intent Homicidal Thoughts: denies homicidal thoughts Hallucinations: no auditory hallucinations and no visual hallucinations Cognition: attention grossly intact and language grossly intact Insight: + fair insight Judgement: + fair judgement Vital Signs (Past 24 Hours) Last Vital Signs Temp 36.7 C 11/01/19 06:00 Pulse 115 H 11/01/19 06:32 Resp 19 11/01/19 06:00 BP 129/81 11/01/19 06:32 Pulse Ox 95 10/31/19 01:44 Results & Data Laboratory Results Laboratory Results - last 24 hr 10/31/19 10/31/19 11/01/19 17:15 21:02 08:00 POC Glucose 153 H 142 H 99 11/01/19 12:34 POC Glucose 161 H Current Inpatient Medications Current Inpatient Medications: Current Inpatient Medications Acetaminophen (Tylenol) 650 mg PO Q4H PRN PRN Reason: Headache or Minor Fever Stop: 11/30/19 01:34 Al Hydrox/Mg Hydrox/Simethicone (Maalox) 30 ml PO Q4H PRN PRN Reason: GI Upset Stop: 11/30/19 01:34 Atorvastatin Calcium (Lipitor) 40 mg PO HS DIANA Stop: 11/30/19 21:59 Last Admin: 10/31/19 21:45 Dose: 40 mg Documented by: Bismuth Subsalicylate (Kaopectate) 15 ml PO PRN PRN PRN Reason: Loose Stool Stop: 11/30/19 01:34 Clonazepam (Klonopin) 0.5 mg PO BID DIANA Stop: 11/30/19 08:59 Last Admin: 11/01/19 08:33 Dose: 0.5 mg Documented by: Dextrose (Dextrose 50%) 25 - 50 ml IV UD PRN; Protocol PRN Reason: Hypoglycemia Protocol Stop: 11/30/19 03:59 Glucagon (Glucagen) 1 mg IM UD PRN; Protocol PRN Reason: Hypoglycemia Protocol Stop: 11/30/19 03:59 Glucose (Glucose 40%) 15 - 30 gm PO UD PRN; Protocol PRN Reason: Hypoglycemia Protocol Stop: 11/30/19 03:59 Glucose (Dex4 Glucose) 4 - 8 tabs PO UD PRN; Protocol PRN Reason: Hypoglycemia Protocol Stop: 11/30/19 03:59 Hydroxyzine HCl (Vistaril) 50 mg PO HSZ PRN PRN Reason: Insomnia Stop: 11/30/19 01:34 Hydroxyzine HCl (Vistaril) 25 mg PO Q4H PRN PRN Reason: Anxiety Stop: 11/30/19 01:34 Insulin Aspart (Novolog Flexpen) 0 units SC [facility]; Protocol Stop: 11/30/19 11:59 Last Admin: 11/01/19 08:48 Dose: 6 units Documented by: Insulin Glargine (Lantus Solostar Pen) 0 units SQ HS [facility]; Protocol Stop: 11/30/19 21:59 Last Admin: 10/31/19 21:54 Dose: 30 units Documented by: Lisinopril (Zestril) 2.5 mg PO [facility] Stop: 11/30/19 08:59 Last Admin: 11/01/19 08:33 Dose: 2.5 mg Documented by: Magnesium Hydroxide (Milk Of Magnesia) 30 ml PO DAILY PRN PRN Reason: Constipation Stop: 11/30/19 01:34 Miscellaneous (Remove Nicoderm Patch) 1 ea N/A DAILY@0859 [facility] Stop: 11/30/19 08:58 Last Admin: 11/01/19 08:40 Dose: 1 ea Documented by: Miscellaneous (Carbohydrates For Hypoglycemia) 15 - 30 gm PO UD PRN PRN Reason: Hypoglycemia Treatment Stop: 11/30/19 03:59 Miscellaneous Information (Consult Glycemic Management Pharmacy) 1 ea N/A UD PRN PRN Reason: Consult Stop: 11/30/19 10:27 Nicotine (Nicoderm Cq) 14 mg TD [facility] Stop: 11/30/19 08:59 Last Admin: 11/01/19 08:33 Dose: 14 mg Documented by: Nicotine Polacrilex (Nicorette 2mg) 1 piece MT PRN PRN PRN Reason: Nicotine Withdrawal Stop: 11/30/19 01:34 Sodium Chloride ([place] Nasal) 1 - 2 sprays NA PRN PRN PRN Reason: Nasal Dryness/Congestion Stop: 11/30/19 01:34 Venlafaxine HCl (Effexor Extended Release) 150 mg PO [facility] Stop: 11/30/19 08:59 Last Admin: 11/01/19 08:28 Dose: 150 mg Documented by: Venlafaxine HCl (Effexor Extended Release) 75 mg PO [facility] Stop: 11/30/19 10:29 Last Admin: 11/01/19 08:29 Dose: 75 mg Documented by: Mental Health & Subst Abuse Tx Psychiatrist Name of Psychiatrist: Carlos Date of Appointment with Psychiatrist: 11/15/19 Time of Appointment with Psychiatrist: 0830 Therapist Name of Therapist: Wendy Cote in [place] Date of Therapist Appointment: 11/10/19 Time of Therapist Appointment: 0490 International Sourcing Manager Name of International Sourcing Manager: Denies/None Post Discharge Appointments Primary Care Physician Name Of Family Doctor: Leila [place] (1) Depression Active/Remission status: currently active Depression Type: major depressive disorder Major depression episode severity: severe Major depression recurrence: recurrent Psychotic features: without psychotic features Qualified Code(s): F33.2 - Major depressive disorder, recurrent severe without psychotic features
[2019-11-01] MEDS: ATORVASTATIN 40 MG TAB PO SCH (22:01)
[2019-11-01] MEDS: INSULIN GLARGINE SOLOSTAR 100 UNITS/ML 3 ML PEN SQ SCH (22:03)
[2019-11-02] MEDS: VENLAFAXINE HCL XR 150 MG CAPXR PO SCH (08:42)
[2019-11-02] MEDS: VENLAFAXINE HCL XR 75 MG CAPXR PO SCH (08:42)
[2019-11-02] MEDS: clonazePAM 0.5 MG TAB PO SCH ×2 (08:45→21:57)
[2019-11-02] MEDS: NICOTINE 14 MG/24 HR PATCH TD SCH (08:47)
[2019-11-02] MEDS: INSULIN GLARGINE SOLOSTAR 100 UNITS/ML 3 ML PEN SQ SCH ×2 (09:14→22:01)
[2019-11-02] MEDS: INSULIN ASPART 100 UNITS/ML 3 ML PEN SC SCH ×4 (09:16→22:02)
--- NOTE | 2019-11-02 14:43 | Psychiatric Progress Note ---
Date of Service November 02, 2019 Impression / Recommendations Impression 54-year-old female with a history of depression, anxiety, and poorly controlled diabetes who presents with worsening mood and suicidal ideation in the context of multiple psychosocial stressors. She agreed to venlafaxine titration, and would like to explore ways to manage stressors at home, including custody of 3 young grandchildren, 1 of whom has severe medical problems, and difficulties with adult daughter with BPD who is living with them and is disruptive. Family meeting held with this morning, he remains supportive. Continuing to explore additional in-home support options for caring for grandchildren. Pt agreeable with case management referral, having completed phone intake. We will involve the diabetic pharmacist and educated her regarding her poorly controlled diabetes, and will explore ways to increase her supports at home. Inpatient treatment is medically necessary due to the severity of symptoms and risk for suicide if discharged prematurely. (1) Depression: 10/31 - Reviewed diagnosis and treatment options, including medication, therapy, and discussion of psychosocial stressors/supports. - Increase venlafaxine XR to 225mg daily to target mood and anxiety. -Continue home dose of clonazepam. -Coordinate w/ OP psychiatrist and therapist, explore options to increase supports (?BCM) -Family meeting with . 11/01 - Continue mediations as adjusted above - Phone meeting with still needs scheduled - Coordinate care and offer encouragement for more routine outpatient treatment - Pt was agreeable with considering case management referral 11/02 - Continue medications as above - Phone meeting with held today, remains supportive - Pt agreeable with case management referral - completed phone intake today (2) Anxiety: 10/31 - Increase SNRI as above, continue clonazepam. -Encourage group attendance and participation, work on healthy coping skills and discharge safety. 11/02 - Reporting improvement in anxiety overall - Agreeable with exploring resources that may offer assistance with caring for grandchildren at home - Family meeting with held this morning - support is ongoing (3) Diabetes: 10/31 -continue insulin, consult diabetic pharmacist, provide diabetes education. -Diabetic diet. (4) Hypertension: 11/01 - Continue home dose of lisinopril 2.5mg daily Inventory Assets Strengths: Willing for treatment, supportive , has outpatient providers Needs: Improved supports and coping mechanisms Risk Factors Assessment Male: No : Yes Do You Have Access To A Gun?: No Health Problems: Yes Mental Health Diagnoses: Yes Substance Use Disorders: No Previous Attempt: No Family History of Suicide: No Previous Psychiatric Hospitalization: Yes Hopelessness: Yes Smoker: Yes Protective Factors Assessment : Yes Responsible for Young Children: Yes Employed: No Stable Relationships: Yes Supportive Family: No Good Rapport with Provider: Yes Interval History Identifying Information CARLOS JONES is a 54-year-old F who currently lives in [place] with her and 3 grandchildren, has a history of depression and anxiety, and was admitted on 10/31/19 00:48 on a 201 voluntary commitment for suicidal ideation with multiple plans. Chief Complaint "I'm ok. I think a little better." Review of Systems Notes Constitutional: denied Cardiovascular: denied Respiratory: denied Gastrointestinal: denied Neurological: denied Psychiatric: denies symptoms other than stated above Total of at least 10 systems reviewed, pertinent positives as above and in HPI. Sleep Information Total Hours of Sleep: 7 Sleep Comments: admitted at 0113 Meal Information Percent Meal Consumed - Breakfast: 100 Percent Meal Consumed - Lunch: 100 Percent Meal Consumed - Dinner: 100 Subjective Subjective Patient was seen & assessed and interval progress reviewed with treatment team. Staff report the patient has demonstrated improvement since admission. She is scheduled to have a family meeting with this morning via phone. She rated her mood an 8/10 and "well" last evening. Patient was seen today to assess progress since admission. Pt states she is "ok" today, reporting improvement overall. She states her family meeting this morning was productive. She reports plan to spend more time with her in the morning, while the grandchildren are in school. She states her had also offered to care for the children at times that patient may require "a break for a few minutes." Pt states that she heard the [facility] visit to her home went well, "they said they didn't have any concerns, but to call if we ever need any services. I think we're going to call anyway, just to see if there is something they are able to offer." Pt denies SI, but continues to feel overwhelmed about the idea of going home - making her unable to convincingly contract for safety outside of the hospital. She denies other needs or concerns presently. Physical Exam Psychiatric Orientation: alert, oriented x 3 and cooperative (and pleasant) Apperance: appropriately dressed, appropriately groomed, + disheveled (hair appearing unkempt) and appeared stated age Eye Contact: good eye contact Motor Behavior: steady gait and station and no abnormal motor movements Speech: normal rate/rhythm/volume of speech Affect: + flat affect Mood: + depressed mood ("ok", reporting improvement in mood overall) Thought Process: goal directed thought process, clear/coherent thought process and thought association intact Thought Content: reality based without delusions; no hopelessness and no worthlessness Suicidal Thoughts: denies suicidal thoughts and denies suicidal intent Homicidal Thoughts: denies homicidal thoughts Hallucinations: no auditory hallucinations and no visual hallucinations Cognition: attention grossly intact and language grossly intact Insight: + fair insight Judgement: + fair judgement Vital Signs (Past 24 Hours) Last Vital Signs Temp 36.6 C 11/02/19 06:51 Pulse 103 H 11/02/19 06:52 Resp 20 11/02/19 06:51 BP 144/81 H 11/02/19 06:52 Pulse Ox 95 10/31/19 01:44 Results & Data Laboratory Results Laboratory Results - last 24 hr 11/01/19 11/01/19 11/02/19 17:16 20:57 08:10 POC Glucose 178 H 247 H 83 11/02/19 12:47 POC Glucose 135 H Current Inpatient Medications Current Inpatient Medications: Current Inpatient Medications Acetaminophen (Tylenol) 650 mg PO Q4H PRN PRN Reason: Headache or Minor Fever Stop: 11/30/19 01:34 Al Hydrox/Mg Hydrox/Simethicone (Maalox) 30 ml PO Q4H PRN PRN Reason: GI Upset Stop: 11/30/19 01:34 Atorvastatin Calcium (Lipitor) 40 mg PO HS [facility] Stop: 11/30/19 21:59 Last Admin: 11/01/19 22:01 Dose: 40 mg Documented by: Bismuth Subsalicylate (Kaopectate) 15 ml PO PRN PRN PRN Reason: Loose Stool Stop: 11/30/19 01:34 Clonazepam (Klonopin) 0.5 mg PO BID [facility]IANA Stop: 11/30/19 08:59 Last Admin: 11/02/19 08:45 Dose: 0.5 mg Documented by: Dextrose (Dextrose 50%) 25 - 50 ml IV UD PRN; Protocol PRN Reason: Hypoglycemia Protocol Stop: 11/30/19 03:59 Glucagon (Glucagen) 1 mg IM UD PRN; Protocol PRN Reason: Hypoglycemia Protocol Stop: 11/30/19 03:59 Glucose (Glucose 40%) 15 - 30 gm PO UD PRN; Protocol PRN Reason: Hypoglycemia Protocol Stop: 11/30/19 03:59 Glucose (Dex4 Glucose) 4 - 8 tabs PO UD PRN; Protocol PRN Reason: Hypoglycemia Protocol Stop: 11/30/19 03:59 Hydroxyzine HCl (Vistaril) 50 mg PO HSZ PRN PRN Reason: Insomnia Stop: 11/30/19 01:34 Hydroxyzine HCl (Vistaril) 25 mg PO Q4H PRN PRN Reason: Anxiety Stop: 11/30/19 01:34 Insulin Aspart (Novolog Flexpen) 0 units SC [facility]; Protocol Stop: 11/30/19 11:59 Last Admin: 11/02/19 13:13 Dose: 7 units Documented by: Insulin Glargine (Lantus Solostar Pen) 0 units SQ [facility]; Protocol Stop: 11/30/19 21:59 Last Admin: 11/01/19 22:03 Dose: 40 units Documented by: Insulin Glargine (Lantus Solostar Pen) [address] [facility] Stop: 12/02/19 08:59 Last Admin: 11/02/19 09:14 Dose: 30 units Documented by: Lisinopril (Zestril) 2.5 mg PO QAM [facility] Stop: 11/30/19 08:59 Last Admin: 11/02/19 08:42 Dose: 2.5 mg Documented by: Magnesium Hydroxide (Milk Of Magnesia) 30 ml PO DAILY PRN PRN Reason: Constipation Stop: 11/30/19 01:34 Miscellaneous (Remove Nicoderm Patch) 1 ea N/A DAILY@0859 [facility] Stop: 11/30/19 08:58 Last Admin: 11/02/19 08:48 Dose: 1 ea Documented by: Miscellaneous (Carbohydrates For Hypoglycemia) 15 - 30 gm PO UD PRN PRN Reason: Hypoglycemia Treatment Stop: 11/30/19 03:59 Miscellaneous Information (Consult Glycemic Management Pharmacy) 1 ea N/A UD PRN PRN Reason: Consult Stop: 11/30/19 10:27 Nicotine (Nicoderm Cq) [address] [facility] Stop: 11/30/19 08:59 Last Admin: 11/02/19 08:47 Dose: 14 mg Documented by: Nicotine Polacrilex (Nicorette 2mg) 1 piece MT PRN PRN PRN Reason: Nicotine Withdrawal Stop: 11/30/19 01:34 Sodium Chloride ([place] Nasal) 1 - 2 sprays NA PRN PRN PRN Reason: Nasal Dryness/Congestion Stop: 11/30/19 01:34 Venlafaxine HCl (Effexor Extended Release) 150 mg PO QAM [facility] Stop: 11/30/19 08:59 Last Admin: 11/02/19 08:42 Dose: 150 mg Documented by: Venlafaxine HCl (Effexor Extended Release) 75 mg PO QAM [facility] Stop: 11/30/19 10:29 Last Admin: 11/02/19 08:42 Dose: 75 mg Documented by: Mental Health & Subst Abuse Tx Psychiatrist Name of Psychiatrist: Carlos Psychiatrist's Date of Appointment with Psychiatrist: 11/15/19 Time of Appointment with Psychiatrist: 8:30am Psychiatric Appointment Comment: [address] [facility] [place], [place] [address] Therapist Name of Therapist: Wendy Cote in [place] Therapist's Date of Therapist Appointment: 11/10/19 Time of Therapist Appointment: 2:30pm Therapy Appointment Comment: 11/16 at 11:00am Medical Care Manager Name of Medical Care Manager: VANESA Witt Phone Number for Medical Care Manager: [phone] Post Discharge Appointments Primary Care Physician Name Of Family Doctor: Leila Shen PA-C Primary Care Contact Information Discharge Discharge Address: [address] [place] [address] [place] [id number] (1) Depression Active/Remission status: currently active Depression Type: major depressive disorder Major depression episode severity: severe Major depression recurrence: recurrent Psychotic features: without psychotic features Qualified Code(s): F33.2 - Major depressive disorder, recurrent severe without psychotic features
[2019-11-02] MEDS: ATORVASTATIN 40 MG TAB PO SCH (21:57)
--- NOTE | 2019-11-03 09:02 | Pharmacy Report ---
Pharmacy Glycemic Short Note 2 - Date of Service November 03, 2019 - Glycemic Short BSG Results (Last 24 hours): 11/02/19 11/02/19 11/02/19 12:47 17:09 20:21 POC Glucose 135 H 171 H 210 H 11/03/19 08:10 POC Glucose 117 H OUTPATIENT ANTIDIABETIC REGIMEN: * Basaglar 40 units SC BID * A1c = 11.1 % 10/30/19 ASSESSMENT: * Pt has been reasonably controlled over the previous 4 days. No acute fluctuation in insulin requirements are anticipated. She tends to go hyperglycemic at HS, likely due to carb-heavy dinners. AM FBS almost always at goal however. We will continue with current insulin orders at this juncture. PLAN FOR INPATIENT GLYCEMIC CONTROL: * Hold outpatient oral diabetes medications * Basal insulin * Lantus 30 units SQ this morning * Lantus scale HS * -20 units - BSG 120 mg/dL or below * -30 units - BSG 121-179 mg/dL * -40 units - BSG 180 mg/dL or above * Bolus insulin * NovoLog per scale ACHS or Q6hrs while NPO * Goal Range: Low 110 mg/dL - High 140 mg/dL * Correction Factor: 20 mg/dL/unit * Nutritional / Prandial insulin per carb ratio of 1 unit per 7 grams CHO consumed PLAN FOR DISCHARGE: * Reasonable A1c goal for most non- adults is less than 7% * Patient's A1c of 11.1% demonstrates poor glycemic control as an outpatient * Agree with note from hospital educator regarding a GLP-1 agonist. Especially given her multiple psychosocial stressors - a once-weekly GLP-1 agonist may be a good option for this patient to achieve better glycemic control - provided one will be covered by her insurance. * These medications have high efficacy, low risk of hypoglycemia, can aid in weight loss, and decrease major cardiovascular events * Encourage patient to speak with managing provider/MTM pharmacist regarding GLP-1 agonist * Basaglar dose may also need to be adjusted - will follow while inpatient
[2019-11-03] MEDS: VENLAFAXINE HCL XR 75 MG CAPXR PO SCH (09:14)
[2019-11-03] MEDS: VENLAFAXINE HCL XR 150 MG CAPXR PO SCH (09:14)
[2019-11-03] MEDS: clonazePAM 0.5 MG TAB PO SCH ×2 (09:17→21:56)
[2019-11-03] MEDS: INSULIN GLARGINE SOLOSTAR 100 UNITS/ML 3 ML PEN SQ SCH ×2 (09:20→22:01)
[2019-11-03] MEDS: INSULIN ASPART 100 UNITS/ML 3 ML PEN SC SCH ×4 (09:21→21:59)
[2019-11-03] MEDS: NICOTINE 14 MG/24 HR PATCH TD SCH (09:22)
--- NOTE | 2019-11-03 12:57 | Psychiatric Progress Note ---
Date of Service November 03, 2019 Impression / Recommendations Impression 54-year-old female with a history of depression, anxiety, and poorly controlled diabetes who presents with worsening mood and suicidal ideation in the context of multiple psychosocial stressors. She agreed to venlafaxine titration, and would like to explore ways to manage stressors at home, including custody of 3 young grandchildren, 1 of whom has severe medical problems, and difficulties with adult daughter with BPD who is living with them and is disruptive. Family meeting held with this morning, he remains supportive. Continuing to explore additional in-home support options for caring for grandchildren. Pt agreeable with case management referral, having completed phone intake. We will involve the diabetic pharmacist and educated her regarding her poorly controlled diabetes, and will explore ways to increase her supports at home. Inpatient treatment is medically necessary due to the severity of symptoms and risk for suicide if discharged prematurely. (1) Depression: 10/31 - Reviewed diagnosis and treatment options, including medication, therapy, and discussion of psychosocial stressors/supports. - Increase venlafaxine XR to 225mg daily to target mood and anxiety. -Continue home dose of clonazepam. -Coordinate w/ OP psychiatrist and therapist, explore options to increase supports (?BCM) -Family meeting with . 11/01 - Continue mediations as adjusted above - Phone meeting with still needs scheduled - Coordinate care and offer encouragement for more routine outpatient treatment - Pt was agreeable with considering case management referral 11/02 - Continue medications as above - Phone meeting with held today, remains supportive - Pt agreeable with case management referral - completed phone intake today 11/03 - Continue current medication regimen - Despite incongruent affect, patient is reporting significant improvement in mood - Consider discharge in the next day or so (2) Anxiety: 10/31 - Increase SNRI as above, continue clonazepam. -Encourage group attendance and participation, work on healthy coping skills and discharge safety. 11/02 - Reporting improvement in anxiety overall - Agreeable with exploring resources that may offer assistance with caring for grandchildren at home - Family meeting with held this morning - support is ongoing (3) Diabetes: 10/31 -continue insulin, consult diabetic pharmacist, provide diabetes education. -Diabetic diet. (4) Hypertension: 11/01 - Continue home dose of lisinopril 2.5mg daily Inventory Assets Strengths: Willing for treatment, supportive , has outpatient providers Needs: Improved supports and coping mechanisms Risk Factors Assessment Male: No : Yes Do You Have Access To A Gun?: No Health Problems: Yes Mental Health Diagnoses: Yes Substance Use Disorders: No Previous Attempt: No Family History of Suicide: No Previous Psychiatric Hospitalization: Yes Hopelessness: Yes Smoker: Yes Protective Factors Assessment : Yes Responsible for Young Children: Yes Employed: No Stable Relationships: Yes Supportive Family: No Good Rapport with Provider: Yes Interval History Identifying Information CARLOS JONES is a 54-year-old F who currently lives in [place] with her and 3 grandchildren, has a history of depression and anxiety, and was admitted on 10/31/19 00:48 on a 201 voluntary commitment for suicidal ideation with multiple plans. Chief Complaint "I tried to help people out during group today." Review of Systems Notes Constitutional: denied Cardiovascular: denied Respiratory: denied Gastrointestinal: denied Genitourinary: reports urinary incontinence last evening Neurological: denied Psychiatric: denies symptoms other than stated above Total of at least 10 systems reviewed, pertinent positives as above and in HPI. Sleep Information Total Hours of Sleep: 6 Sleep Comments: per patient request: woke patient every two to three hours for her to use bathroom. Meal Information Percent Meal Consumed - Breakfast: 80 Percent Meal Consumed - Lunch: 100 Percent Meal Consumed - Dinner: 90 Subjective Subjective Patient was seen & assessed and interval progress reviewed with nursing and social work. Staff reports the patient continues to demonstrate an affect that is incongruent with reported mood. She appears flat and interactions on the unit, but states her mood is a 7/10 and she is feeling "well." Patient did have an episode of incontinence last evening. Patient was seen today to assess progress since admission. She reports feeling proud of herself as "I tried to help people out during group." Patient states that she was able to offer support to a peer, "I was telling her that it helps to get rid of people in your life but do not get back. I like helping people, but I realized I need to help people who also feel me back up, not people who just keep taking." Patient tells this provider that "sometimes I still feel like I need to help everyone, but more recently I feel like it is because it is my choice." Patient states this is something she hopes continues moving forward, to prevent her from getting worn out by always helping others. Patient denies suicidal ideation, and states her mood at time of encounter is a 9/10. Patient states that she is feeling "happy" and reports she is "happier than I have been in a long time." Patient reports feeling comfortable with the idea of discharge soon, and denies any side effects related to prior medication adjustments. She denies any needs or concerns today. Physical Exam Psychiatric Orientation: alert, oriented x 3 and cooperative (And pleasant) Apperance: appropriately dressed, appropriately groomed and appeared stated age Eye Contact: good eye contact Motor Behavior: steady gait and station (Ambulates with cane) and no abnormal motor movements Speech: normal rate/rhythm/volume of speech Affect: + flat affect; + mood not congruent with affect Mood: no depressed mood ("I feel happy" and "happier than I have been in a long time") Thought Process: goal directed thought process, clear/coherent thought process and thought association intact Thought Content: reality based without delusions; no hopelessness Suicidal Thoughts: denies suicidal thoughts and denies suicidal intent Homicidal Thoughts: denies homicidal thoughts Hallucinations: no auditory hallucinations and no visual hallucinations Cognition: attention grossly intact and language grossly intact Insight: + fair insight Judgement: + fair judgement Vital Signs (Past 24 Hours) Last Vital Signs Temp 36.7 C 11/03/19 07:08 Pulse 105 H 11/03/19 07:08 Resp 20 11/03/19 07:08 BP 122/79 11/03/19 07:08 Pulse Ox 95 10/31/19 01:44 Results & Data Laboratory Results Laboratory Results - last 24 hr 11/02/19 11/02/19 11/03/19 17:09 20:21 08:10 POC Glucose 171 H 210 H 117 H 11/03/19 12:33 POC Glucose 175 H Current Inpatient Medications Current Inpatient Medications: Current Inpatient Medications Acetaminophen (Tylenol) 650 mg PO Q4H PRN PRN Reason: Headache or Minor Fever Stop: 11/30/19 01:34 Al Hydrox/Mg Hydrox/Simethicone (Maalox) 30 ml PO Q4H PRN PRN Reason: GI Upset Stop: 11/30/19 01:34 Atorvastatin Calcium (Lipitor) 40 mg PO HS DIANA Stop: 11/30/19 21:59 Last Admin: 11/02/19 21:57 Dose: 40 mg Documented by: Bismuth Subsalicylate (Kaopectate) 15 ml PO PRN PRN PRN Reason: Loose Stool Stop: 11/30/19 01:34 Clonazepam (Klonopin) 0.5 mg PO BID [facility] Stop: 11/30/19 08:59 Last Admin: 11/03/19 09:17 Dose: 0.5 mg Documented by: Dextrose (Dextrose 50%) 25 - 50 ml IV UD PRN; Protocol PRN Reason: Hypoglycemia Protocol Stop: 11/30/19 03:59 Glucagon (Glucagen) 1 mg IM UD PRN; Protocol PRN Reason: Hypoglycemia Protocol Stop: 11/30/19 03:59 Glucose (Glucose 40%) 15 - 30 gm PO UD PRN; Protocol PRN Reason: Hypoglycemia Protocol Stop: 11/30/19 03:59 Glucose (Dex4 Glucose) 4 - 8 tabs PO UD PRN; Protocol PRN Reason: Hypoglycemia Protocol Stop: 11/30/19 03:59 Hydroxyzine HCl (Vistaril) 50 mg PO HSZ PRN PRN Reason: Insomnia Stop: 11/30/19 01:34 Hydroxyzine HCl (Vistaril) 25 mg PO Q4H PRN PRN Reason: Anxiety Stop: 11/30/19 01:34 Insulin Aspart (Novolog Flexpen) 0 units SC [facility]; Protocol Stop: 11/30/19 11:59 Last Admin: 11/03/19 09:21 Dose: 6 units Documented by: Insulin Glargine (Lantus Solostar Pen) 0 units SQ HS [facility]; Protocol Stop: 11/30/19 21:59 Last Admin: 11/02/19 22:01 Dose: 40 units Documented by: Insulin [place]argine (Lantus Solostar Pen) [facility] [facility] [place]: 12/02/19 08:59 Last Admin: 11/03/19 09:20 Dose: 30 units Documented by: Lisinopril (Zestril) 2.5 mg PO QAM [facility] Stop: 11/30/19 08:59 Last Admin: 11/03/19 09:15 Dose: 2.5 mg Documented by: Magnesium Hydroxide (Milk Of Magnesia) 30 ml PO DAILY PRN PRN Reason: Constipation Stop: 11/30/19 01:34 Miscellaneous (Remove Nicoderm Patch) 1 ea N/A DAILY@0859 [facility] Stop: 11/30/19 08:58 Last Admin: 11/03/19 09:23 Dose: 1 ea Documented by: Miscellaneous (Carbohydrates For Hypoglycemia) 15 - 30 gm PO UD PRN PRN Reason: Hypoglycemia Treatment Stop: 11/30/19 03:59 Miscellaneous Information (Consult Glycemic Management Pharmacy) 1 ea N/A UD PRN PRN Reason: Consult Stop: 11/30/19 10:27 Nicotine (Nicoderm Cq) 14 mg TD QAM [facility] Stop: 11/30/19 08:59 Last Admin: 11/03/19 09:22 Dose: 14 mg Documented by: Nicotine Polacrilex (Nicorette 2mg) 1 piece MT PRN PRN PRN Reason: Nicotine Withdrawal Stop: 11/30/19 01:34 Sodium Chloride ([place] Nasal) 1 - 2 sprays NA PRN PRN PRN Reason: Nasal Dryness/Congestion Stop: 11/30/19 01:34 Venlafaxine HCl (Effexor Extended Release) 150 [facility] [place] Stop: 11/30/19 08:59 Last Admin: 11/03/19 09:14 Dose: 150 mg Documented by: Venlafaxine HCl (Effexor Extended Release) 75 mg PO QAM [facility] Stop: 11/30/19 10:29 Last Admin: 11/03/19 09:14 Dose: 75 mg Documented by: Mental Health & Subst Abuse Tx Psychiatrist Name of Psychiatrist: Carlos Psychiatrist's Date of Appointment with Psychiatrist: 11/15/19 Time of Appointment with Psychiatrist: 8:30am Psychiatric Appointment Comment: [address] [facility], [place] [address] Therapist Name of Therapist: Wendy Cote in [place] Therapist's Date of Therapist Appointment: 11/10/19 Time of Therapist Appointment: 2:30pm Therapy Appointment Comment: 11/16 at 11:00am Manager Planning Name of Manager Planning: VANESA [place] (call [facility] to inform of dc date and schedule) Phone Number for Manager Planning: [phone] Post Discharge Appointments Primary Care Physician Name Of Family Doctor: Leila Shen PA-C Primary Care Contact Information Discharge Discharge Address: [address] [place] [address] (1) Depression Active/Remission status: currently active Depression Type: major depressive disorder Major depression episode severity: severe Major depression recurrence: recurrent Psychotic features: without psychotic features Qualified Code(s): F33.2 - Major depressive disorder, recurrent severe without psychotic features
[2019-11-03] MEDS: ATORVASTATIN 40 MG TAB PO SCH (21:56)
[2019-11-04] MEDS: clonazePAM 0.5 MG TAB PO SCH ×2 (09:01→21:24)
[2019-11-04] MEDS: VENLAFAXINE HCL XR 75 MG CAPXR PO SCH (09:01)
[2019-11-04] MEDS: VENLAFAXINE HCL XR 150 MG CAPXR PO SCH (09:01)
[2019-11-04] MEDS: INSULIN ASPART 100 UNITS/ML 3 ML PEN SC SCH ×4 (09:05→21:28)
--- NOTE | 2019-11-04 09:06 | Pharmacy Report ---
Pharmacy Glycemic Short Note 2 - Date of Service November 04, 2019 - Glycemic Short BSG Results (Last 24 hours): 11/03/19 11/03/19 11/03/19 12:33 17:14 20:26 POC Glucose 175 H 120 H 178 H 11/04/19 08:34 POC Glucose 78 OUTPATIENT ANTIDIABETIC REGIMEN: * Basaglar 40 units SC BID * A1c = 11.1 % 10/30/19 ASSESSMENT: * Pt has been reasonably controlled over the previous 4 days. No acute fluctuation in insulin requirements are anticipated. She tends to go hyperglycemic at HS, likely due to carb-heavy dinners. AM FBS almost always at goal however. We will continue with current insulin orders at this juncture. She typically requires 90-105u/D. She is basal heavy, not surprising given her high A1C. PLAN FOR INPATIENT GLYCEMIC CONTROL: * Hold outpatient oral diabetes medications * Basal insulin * Lantus 30 units SQ this morning * Lantus scale HS * -20 units - BSG 120 mg/dL or below * -30 units - BSG 121-179 mg/dL * -40 units - BSG 180 mg/dL or above * Bolus insulin * NovoLog per scale ACHS or Q6hrs while NPO * Goal Range: Low 110 mg/dL - High 140 mg/dL * Correction Factor: 20 mg/dL/unit * Nutritional / Prandial insulin per carb ratio of 1 unit per 7 grams CHO consumed PLAN FOR DISCHARGE: * Reasonable A1c goal for most non- adults is less than 7% * Patient's A1c of 11.1% demonstrates poor glycemic control as an outpatient * Agree with note from religious educator regarding a GLP-1 agonist. Especially given her multiple psychosocial stressors - a once-weekly GLP-1 agonist may be a good option for this patient to achieve better glycemic control - provided one will be covered by her insurance. * These medications have high efficacy, low risk of hypoglycemia, can aid in weight loss, and decrease major cardiovascular events * Encourage patient to speak with managing provider/MTM pharmacist regarding GLP-1 agonist * Basaglar dose may also need to be adjusted - will follow while inpatient
[2019-11-04] MEDS: NICOTINE 14 MG/24 HR PATCH TD SCH (09:14)
[2019-11-04] MEDS: INSULIN GLARGINE SOLOSTAR 100 UNITS/ML 3 ML PEN SQ SCH ×2 (09:16→21:24)
--- NOTE | 2019-11-04 09:51 | Psychiatric Progress Note ---
Date of Service November 04, 2019 Impression / Recommendations Impression 54-year-old female with a history of depression, anxiety, and poorly controlled diabetes who presents with worsening mood and suicidal ideation in the context of multiple psychosocial stressors. She agreed to venlafaxine titration, and would like to explore ways to manage stressors at home, including custody of 3 young grandchildren, 1 of whom has severe medical problems, and difficulties with adult daughter with BPD who is living with them and is disruptive. Family meeting held with who remains supportive. Continuing to explore additional in-home support options for caring for grandchildren. Pt agreeable with case management referral, having completed phone intake. We will involve the diabetic pharmacist and educated her regarding her poorly controlled diabetes, and will explore ways to increase her supports at home. Inpatient treatment is medically necessary due to the severity of symptoms and risk for suicide if discharged prematurely. (1) Depression: 10/31 - Reviewed diagnosis and treatment options, including medication, therapy, and discussion of psychosocial stressors/supports. - Increase venlafaxine XR to 225mg daily to target mood and anxiety. -Continue home dose of clonazepam. -Coordinate w/ OP psychiatrist and therapist, explore options to increase supports (?BCM) -Family meeting with . 11/01 - Continue mediations as adjusted above - Phone meeting with still needs scheduled - Coordinate care and offer encouragement for more routine outpatient treatment - Pt was agreeable with considering case management referral 11/02 - Continue medications as above - Phone meeting with held today, remains supportive - Pt agreeable with case management referral - completed phone intake today 11/03 - Continue current medication regimen - Despite incongruent affect, patient is reporting significant improvement in mood - Consider discharge in the next day or so 11/04 - Continue current medication regimen - Coordinate discharge planning with family, as patient will require transportation home - Pt feeling as though she is approaching readiness for discharge (2) Anxiety: 10/31 - Increase SNRI as above, continue clonazepam. -Encourage group attendance and participation, work on healthy coping skills and discharge safety. 11/02 - Reporting improvement in anxiety overall - Agreeable with exploring resources that may offer assistance with caring for grandchildren at home - Family meeting with held this morning - support is ongoing (3) Diabetes: 10/31 -continue insulin, consult diabetic pharmacist, provide diabetes education. -Diabetic diet. (4) Hypertension: 11/01 - Continue home dose of lisinopril 2.5mg daily Inventory Assets Strengths: Willing for treatment, supportive , has outpatient providers Needs: Improved supports and coping mechanisms Risk Factors Assessment Male: No : Yes Do You Have Access To A Gun?: No Health Problems: Yes Mental Health Diagnoses: Yes Substance Use Disorders: No Previous Attempt: No Family History of Suicide: No Previous Psychiatric Hospitalization: Yes Hopelessness: Yes Smoker: Yes Protective Factors Assessment : Yes Responsible for Young Children: Yes Employed: No Stable Relationships: Yes Supportive Family: No Good Rapport with Provider: Yes Interval History Identifying Information CARLOS JONES is a 54-year-old F who currently lives in [place] with her and 3 grandchildren, has a history of depression and anxiety, and was admitted on 10/31/19 00:48 on a 201 voluntary commitment for suicidal ideation with multiple plans. Chief Complaint " I am really good." Review of Systems Notes Constitutional: denied Cardiovascular: denied Respiratory: denied Gastrointestinal: denied Neurological: denied Psychiatric: denies symptoms other than stated above Total of at least 10 systems reviewed, pertinent positives as above and in HPI. Sleep Information Total Hours of Sleep: 4.75 Sleep Comments: awakened at 0000, 0300, 0530 to void. incontinent on the 0300 round (bedding and clothing saturated with urine) Meal Information Percent Meal Consumed - Breakfast: 75 Percent Meal Consumed - Lunch: 100 Percent Meal Consumed - Dinner: 100 Subjective Subjective Patient was seen & assessed and interval progress reviewed with treatment team. Staff reports the patient continues to demonstrate a rather flat affect, reporting incongruent moods of 89/10. Aftercare referrals are still outstanding, especially to schedule appointments with her PCP and new watch caser. Patient was seen today to assess progress since admission. She states she is feeling "really good." Patient reports to this provider "I think I am getting ready", referring to feeling ready for discharge soon. Patient does share with this provider that she had a good conversation with her this morning, in which he encouraged her to think of ways to reduce her stress. Patient states "I think I need to start listening to my son and my . They always tell me I need to start telling people 'no'." Patient states that she has enjoyed helping other patients on the unit, because she feels "I do it because I want to, not because they expected." Patient continues to feel as though her help is often taken for granted by her family, and she is realizing she should be considering who to help and when she is overextended already. Patient states she will utilize her son and as engaged to make these decisions. Patient remains agreeable with a case management referral, and is understanding and appointment will need to be scheduled. She believes that her son would be able to pick her up tomorrow, and feels as though she may be ready for discharge soon. Patient denies suicidal ideation, as well as other needs or concerns today. Physical Exam Psychiatric Orientation: alert, oriented x 3 and cooperative (And pleasant) Apperance: appropriately dressed, appropriately groomed and appeared stated age Eye Contact: good eye contact Motor Behavior: steady gait and station (Ambulates with assistance from cane) and no abnormal motor movements Speech: normal rate/rhythm/volume of speech Affect: + flat affect; + mood not congruent with affect Mood: no depressed mood ("Really good") Thought Process: goal directed thought process, clear/coherent thought process and thought association intact Thought Content: reality based without delusions; no hopelessness Suicidal Thoughts: denies suicidal thoughts and denies suicidal intent Homicidal Thoughts: denies homicidal thoughts Hallucinations: no auditory hallucinations and no visual hallucinations Cognition: attention grossly intact and language grossly intact Insight: + fair insight Judgement: good judgement Vital Signs (Past 24 Hours) Last Vital Signs Temp 36.7 C 11/04/19 06:29 Pulse 101 H 11/04/19 06:29 Resp 18 11/04/19 06:29 BP 136/88 11/04/19 06:29 Pulse Ox 95 10/31/19 01:44 Results & Data Laboratory Results Laboratory Results - last 24 hr 11/03/19 11/03/19 11/03/19 12:33 17:14 20:26 POC Glucose 175 H 120 H 178 H 11/04/19 08:34 POC Glucose 78 Current Inpatient Medications Current Inpatient Medications: Current Inpatient Medications Acetaminophen (Tylenol) 650 mg PO Q4H PRN PRN Reason: Headache or Minor Fever Stop: 11/30/19 01:34 Al Hydrox/Mg Hydrox/Simethicone (Maalox) 30 ml PO Q4H PRN PRN Reason: GI Upset Stop: 11/30/19 01:34 Atorvastatin Calcium (Lipitor) 40 mg PO HS DIANA Stop: 11/30/19 21:59 Last Admin: 11/03/19 21:56 Dose: 40 mg Documented by: Bismuth Subsalicylate (Kaopectate) 15 ml PO PRN PRN PRN Reason: Loose Stool Stop: 11/30/19 01:34 Clonazepam (Klonopin) 0.5 mg PO BID [facility] Stop: 11/30/19 08:59 Last Admin: 11/04/19 09:01 Dose: 0.5 mg Documented by: Dextrose (Dextrose 50%) 25 - 50 ml IV UD PRN; Protocol PRN Reason: Hypoglycemia Protocol Stop: 11/30/19 03:59 Glucagon (Glucagen) 1 mg IM UD PRN; Protocol PRN Reason: Hypoglycemia Protocol Stop: 11/30/19 03:59 Glucose (Glucose 40%) 15 - 30 gm PO UD PRN; Protocol PRN Reason: Hypoglycemia Protocol Stop: 11/30/19 03:59 Glucose (Dex4 Glucose) 4 - 8 tabs PO UD PRN; Protocol PRN Reason: Hypoglycemia Protocol Stop: 11/30/19 03:59 Hydroxyzine HCl (Vistaril) 50 mg PO HSZ PRN PRN Reason: Insomnia Stop: 11/30/19 01:34 Hydroxyzine HCl (Vistaril) 25 mg PO Q4H PRN PRN Reason: Anxiety Stop: 11/30/19 01:34 Insulin Aspart (Novolog Flexpen) 0 units SC [facility]; Protocol Stop: 11/30/19 11:59 Last Admin: 11/04/19 09:05 Dose: 3 units Documented by: Insulin Glargine (Lantus Solostar Pen) 0 units SQ [facility]; Protocol Stop: 11/30/19 21:59 Last Admin: 11/03/19 22:01 Dose: 30 units Documented by: Insulin Glargine (Lantus Solostar Pen) 30 units SQ [facility] Stop: 12/02/19 08:59 Last Admin: 11/04/19 09:16 Dose: 30 units Documented by: Lisinopril (Zestril) 2.5 mg PO QAM [facility] Stop: 11/30/19 08:59 Last Admin: 11/04/19 09:02 Dose: 2.5 mg Documented by: Magnesium Hydroxide (Milk Of Magnesia) 30 ml PO DAILY PRN PRN Reason: Constipation Stop: 11/30/19 01:34 Miscellaneous (Remove Nicoderm Patch) 1 ea N/A DAILY@0859 [facility] Stop: 11/30/19 08:58 Last Admin: 11/04/19 09:16 Dose: 1 ea Documented by: Miscellaneous (Carbohydrates For Hypoglycemia) 15 - 30 gm PO UD PRN PRN Reason: Hypoglycemia Treatment Stop: 11/30/19 03:59 Miscellaneous Information (Consult Glycemic Management Pharmacy) 1 ea N/A UD PRN PRN Reason: Consult Stop: 11/30/19 10:27 Nicotine (Nicoderm Cq) 14 mg TD QAM [facility] Stop: 11/30/19 08:59 Last Admin: 11/04/19 09:14 Dose: 14 mg Documented by: Nicotine Polacrilex (Nicorette 2mg) 1 piece MT PRN PRN PRN Reason: Nicotine Withdrawal Stop: 11/30/19 01:34 Sodium Chloride ([place] Nasal) 1 - 2 sprays NA PRN PRN PRN Reason: Nasal Dryness/Congestion Stop: 11/30/19 01:34 Venlafaxine HCl (Effexor Extended Release) 150 mg PO QAM [facility] Stop: 11/30/19 08:59 Last Admin: 11/04/19 09:01 Dose: 150 mg Documented by: Venlafaxine HCl (Effexor Extended Release) 75 mg PO QAM [facility] Stop: 11/30/19 10:29 Last Admin: 11/04/19 09:01 Dose: 75 mg Documented by: Mental Health & Subst Abuse Tx Psychiatrist Name of Psychiatrist: Carlos Psychiatrist's Date of Appointment with Psychiatrist: 11/15/19 Time of Appointment with Psychiatrist: 8:30am Psychiatric Appointment Comment: [address] [facility] [address], [place] [address] Therapist Name of Therapist: Wendy Cote in [place] Therapist's Date of Therapist Appointment: 11/10/19 Time of Therapist Appointment: 2:30pm Therapy Appointment Comment: 11/16 at 11:00am Tiler Name of Tiler: VANESA Witt (call [facility] to inform of dc date and schedule) Phone Number for Tiler: [phone] Post Discharge Appointments Primary Care Physician Name Of Family Doctor: Leila Shen PA-C Primary Care Contact Information Discharge Discharge Address: [address] [place] [address] (1) Depression Active/Remission status: currently active Depression Type: major depressive disorder Major depression episode severity: severe Major depression recurrence: recurrent Psychotic features: without psychotic features Qualified Code(s): F33.2 - Major depressive disorder, recurrent severe without psychotic features
[2019-11-04] MEDS: ATORVASTATIN 40 MG TAB PO SCH (21:27)
[2019-11-05] MEDS: clonazePAM 0.5 MG TAB PO SCH (09:02)
[2019-11-05] MEDS: VENLAFAXINE HCL XR 150 MG CAPXR PO SCH (09:02)
[2019-11-05] MEDS: VENLAFAXINE HCL XR 75 MG CAPXR PO SCH (09:03)
[2019-11-05] MEDS: INSULIN ASPART 100 UNITS/ML 3 ML PEN SC SCH (09:05)
[2019-11-05] MEDS: INSULIN GLARGINE SOLOSTAR 100 UNITS/ML 3 ML PEN SQ SCH (09:07)
[2019-11-05] MEDS: NICOTINE 14 MG/24 HR PATCH TD SCH (09:08)
--- NOTE | 2019-11-05 09:57 | Discharge Summary ---
Date of Service November 05, 2019 History of Present Illness Patient presented to the ER 10/30/19 with worsening depression and suicidal ideation. She had gone to [facility] and was sent to the ER as they had no beds. Her admission labs were normal with the exception of Hgb A1C of 11.1%. On my assessment , she reports depression has been worsening for the past few weeks in the context of multiple stressors - states both of her daughters have BPD, and one also has schizoaffective d/o, and the patient and her have custody of her 3 young children and are rasing them, while her other daughter just moved back in with them and has been "screaming at me and the kids a lot." One of her grandchildren has severe diabetes and is on dialysis, waiting for a kidney transplant. States she has been thinking about wants to end her life as she feels so overwhelmed, including overdosing on medication or walking into traffic. She even thought about "taking them with me," meaning her grandchildren, but says she has not plan or intent to do that, "I would never hurt them." She sought treatment as she did not want to hurt herself or anyone else, and states her grandchildren are protective. States her daughter makes promises to her children that she can't uphold, and this upsets the children. She reports poor self care, not eating properly, poor sleep (staying up late, waking up after a few hours), low energy, anxiety with "mind racing all the time," and feeling "everyone wants something from me, I don't get anything back from anybody, and don't have anything left to give." States she was brought up "if you get sick, you just keep going, have to be the strong one." Has been taking clonazepam twice a day recently. Reports being on venlafaxine for over year, and thinks her dose was increased a few months ago. Denies h/o psychosis, luis, PTSD. Physical Exam Mental Examination see admission H&P and DOD assessment Vital Signs (Past 24 Hours) Last Vital Signs Temp 36.7 C 11/05/19 06:41 Pulse 97 H 11/05/19 06:41 Resp 18 11/05/19 06:41 BP 127/80 11/05/19 06:42 Pulse Ox 95 10/31/19 01:44 Principal Diagnosis MDD Psychiatric Data see daily care comment, in summary her safety was maintained and Effexor XR was titrated from 150 mg to 225 mg. She noted significant improvement in her mood and felt more confident in setting limits/personal boundaries with daughter for the holiday season. She tolerated medications well and was cooperative with programming. Day of Discharge Assessment The patient presented as alert and cooperative. The patient was casually dressed and groomed. Eye contact was fair. No psychomotor restlessness or agitation was noted. Speech was normal in rate, rhythm, and volume. Affect was mood congruent. The patients mood appeared euthymic. Thought processes were clear, coherent and goal directed without evidence of loose associations or flight of ideas. Thought content/perception was reality based without delusions. The patient denied suicidal and homicidal ideation. The patient denied hallucinations and did not appear to be responding to internal stimuli. Cognition was grossly intact with orientation to person, place and time. Fund of Knowledge/Intelligence were consistent with level of education. Insight and Judgement were fair and she verbalized her safety plan. Transition of Care Transition Of Care Record: was reviewed with the patient Advance Directives Advance Directives Information Provided: Yes Advance Directives: No Mental Health Advance Directive: No Advance Directives on File: No Living Will: No Power of Manager Machine: No Advance Directives Reason:: Declines as Mental Health Visit. Risk Factors Assessment Male: No : Yes Do You Have Access To A Gun?: No Health Problems: Yes Mental Health Diagnoses: Yes Substance Use Disorders: No Previous Attempt: No Family History of Suicide: No Previous Psychiatric Hospitalization: Yes Hopelessness: Yes Smoker: Yes Protective Factors Assessment : Yes Responsible for Young Children: Yes Employed: No Stable Relationships: Yes Supportive Family: No Good Rapport with Provider: Yes Tobacco Cessation at Discharge Tobacco Cessation Medication Prescribed at Discharge: Offered & Pt Refused Total Time Total Time Spent: Greater Than 30 Minutes Total Time Includes: Examination of the patient and Medication Reconciliation Discharge Data Lab Results 10/30/19 10/30/19 10/30/19 21:20 21:20 21:29 WBC 8.73 RBC 5.81 H Hgb 17.0 H Hct 49.6 H MCV 85.4 MCH 29.3 MCHC 34.3 RDW Std Deviation 40.6 RDW Coeff of Donna 13.1 Plt Count 210 MPV 9.5 Immature Gran % (Auto) 0.3 Neut % (Auto) 62.8 Lymph % (Auto) 31.7 [place] % (Auto) 3.3 Eos % (Auto) 1.8 Baso % (Auto) 0.1 Immature Gran # (Auto) 0.03 H Neut # (Auto) 5.47 Lymph # (Auto) 2.77 [place] # (Auto) 0.29 Eos # (Auto) 0.16 Baso # (Auto) 0.01 Sodium Potassium Chloride Carbon Dioxide Anion Gap BUN Creatinine Est Cr Clr Drug Dosing Est GFR ( Amer) Est GFR (Non-Af Amer) BUN/Creatinine Ratio Glucose POC Glucose Estimat Average Glucose Hemoglobin A1c Calcium Total Bilirubin AST ALT Alkaline Phosphatase Total Protein Albumin Globulin Albumin/Globulin Ratio TSH Urine Color Yellow Urine Appearance Clear Urine pH 5.0 Ur Specific [place] 1.026 Urine Protein Negative Urine Glucose (UA) 3+ H Urine Ketones Trace H Urine Blood Negative Urine Nitrite Negative Urine Bilirubin Negative Urine Urobilinogen Negative Ur Leukocyte Esterase Negative Salicylates Urine Opiates Screen Neg Ur Methadone, Qual Neg Acetaminophen Urine Barbiturates Neg Ur Phencyclidine (PCP) Neg U Amphetamin/Meth Scrn Neg MDMA (Ecstasy) Screen Neg U Benzodiazepines Scrn Neg Ur Cocaine Metabolite Neg U Marijuana (THC) Screen Neg Ethyl Alcohol mg/dL 10/30/19 10/30/19 10/30/19 21:29 21:29 21:29 WBC RBC Hgb Hct MCV MCH MCHC RDW Std Deviation RDW Coeff of Donna Plt Count MPV Immature Gran % (Auto) Neut % (Auto) Lymph % (Auto) [place] % (Auto) Eos % (Auto) Baso % (Auto) Immature Gran # (Auto) Neut # (Auto) Lymph # (Auto) [place] # (Auto) Eos # (Auto) Baso # (Auto) Sodium 134 L Potassium 3.9 Chloride 100 Carbon Dioxide 27 Anion Gap 7.0 BUN 11 Creatinine 0.75 Est Cr Clr Drug Dosing 107.1 Est GFR ( Amer) 104.0 Est GFR (Non-Af Amer) 89.7 BUN/Creatinine Ratio 14.3 Glucose 297 H POC Glucose Estimat Average Glucose Hemoglobin A1c Calcium 9.4 Total Bilirubin 0.3 AST 13 L ALT 23 Alkaline Phosphatase 162 H Total Protein 7.3 Albumin 3.4 Globulin 3.9 Albumin/Globulin Ratio 0.9 TSH 1.730 Urine Color Urine Appearance Urine pH Ur Specific [place] Urine Protein Urine Glucose (UA) Urine Ketones Urine Blood Urine Nitrite Urine Bilirubin Urine Urobilinogen Ur Leukocyte Esterase Salicylates 2.4 L Urine Opiates Screen Ur Methadone, Qual Acetaminophen < 2 L Urine Barbiturates Ur Phencyclidine (PCP) U Amphetamin/Meth Scrn MDMA (Ecstasy) Screen U Benzodiazepines Scrn Ur Cocaine Metabolite U Marijuana (THC) Screen Ethyl Alcohol mg/dL < 3.0 10/30/19 10/30/19 10/31/19 21:29 23:35 08:08 WBC RBC Hgb Hct MCV MCH MCHC RDW Std Deviation RDW Coeff of Donna Plt Count MPV Immature Gran % (Auto) Neut % (Auto) Lymph % (Auto) [place] % (Auto) Eos % (Auto) Baso % (Auto) Immature Gran # (Auto) Neut # (Auto) Lymph # (Auto) [place] # (Auto) Eos # (Auto) Baso # (Auto) Sodium Potassium Chloride Carbon Dioxide Anion Gap BUN Creatinine Est Cr Clr Drug Dosing Est GFR ( Amer) Est GFR (Non-Af Amer) BUN/Creatinine Ratio Glucose POC Glucose 252 H 145 H Estimat Average Glucose 272 Hemoglobin A1c 11.1 H Calcium Total Bilirubin AST ALT Alkaline Phosphatase Total Protein Albumin Globulin Albumin/Globulin Ratio TSH Urine Color Urine Appearance Urine pH Ur Specific [place] Urine Protein Urine Glucose (UA) Urine Ketones Urine Blood Urine Nitrite Urine Bilirubin Urine Urobilinogen Ur Leukocyte Esterase Salicylates Urine Opiates Screen Ur Methadone, Qual Acetaminophen Urine Barbiturates Ur Phencyclidine (PCP) U Amphetamin/Meth Scrn MDMA (Ecstasy) Screen U Benzodiazepines Scrn Ur Cocaine Metabolite U Marijuana (THC) Screen Ethyl Alcohol mg/dL 10/31/19 10/31/19 10/31/19 12:32 17:15 21:02 WBC RBC Hgb Hct MCV MCH MCHC RDW Std Deviation RDW Coeff of Donna Plt Count MPV Immature Gran % (Auto) Neut % (Auto) Lymph % (Auto) [place] % (Auto) Eos % (Auto) Baso % (Auto) Immature Gran # (Auto) Neut # (Auto) Lymph # (Auto) [place] # (Auto) Eos # (Auto) Baso # (Auto) Sodium Potassium Chloride Carbon Dioxide Anion Gap BUN Creatinine Est Cr Clr Drug Dosing Est GFR ( Amer) Est GFR (Non-Af Amer) BUN/Creatinine Ratio Glucose POC Glucose 208 H 153 H 142 H Estimat Average Glucose Hemoglobin A1c Calcium Total Bilirubin AST ALT Alkaline Phosphatase Total Protein Albumin Globulin Albumin/Globulin Ratio TSH Urine Color Urine Appearance Urine pH Ur Specific [place] Urine Protein Urine Glucose (UA) Urine Ketones Urine Blood Urine Nitrite Urine Bilirubin Urine Urobilinogen Ur Leukocyte Esterase Salicylates Urine Opiates Screen Ur Methadone, Qual Acetaminophen Urine Barbiturates Ur Phencyclidine (PCP) U Amphetamin/Meth Scrn MDMA (Ecstasy) Screen U Benzodiazepines Scrn Ur Cocaine Metabolite U Marijuana (THC) Screen Ethyl Alcohol mg/dL 11/01/19 11/01/19 11/01/19 08:00 12:34 17:16 WBC RBC Hgb Hct MCV MCH MCHC RDW Std Deviation RDW Coeff of Donna Plt Count MPV Immature Gran % (Auto) Neut % (Auto) Lymph % (Auto) [place] % (Auto) Eos % (Auto) Baso % (Auto) Immature Gran # (Auto) Neut # (Auto) Lymph # (Auto) [place] # (Auto) Eos # (Auto) Baso # (Auto) Sodium Potassium Chloride Carbon Dioxide Anion Gap BUN Creatinine Est Cr Clr Drug Dosing Est GFR ( Amer) Est GFR (Non-Af Amer) BUN/Creatinine Ratio Glucose POC Glucose 99 161 H 178 H Estimat Average Glucose Hemoglobin A1c Calcium Total Bilirubin AST ALT Alkaline Phosphatase Total Protein Albumin Globulin Albumin/Globulin Ratio TSH Urine Color Urine Appearance Urine pH Ur Specific [place] Urine Protein Urine Glucose (UA) Urine Ketones Urine Blood Urine Nitrite Urine Bilirubin Urine Urobilinogen Ur Leukocyte Esterase Salicylates Urine Opiates Screen Ur Methadone, Qual Acetaminophen Urine Barbiturates Ur Phencyclidine (PCP) U Amphetamin/Meth Scrn MDMA (Ecstasy) Screen U Benzodiazepines Scrn Ur Cocaine Metabolite U Marijuana (THC) Screen Ethyl Alcohol mg/dL 11/01/19 11/02/19 11/02/19 20:57 08:10 12:47 WBC RBC Hgb Hct MCV MCH MCHC RDW Std Deviation RDW Coeff of Donna Plt Count MPV Immature Gran % (Auto) Neut % (Auto) Lymph % (Auto) [place] % (Auto) Eos % (Auto) Baso % (Auto) Immature Gran # (Auto) Neut # (Auto) Lymph # (Auto) [place] # (Auto) Eos # (Auto) Baso # (Auto) Sodium Potassium Chloride Carbon Dioxide Anion Gap BUN Creatinine Est Cr Clr Drug Dosing Est GFR ( Amer) Est GFR (Non-Af Amer) BUN/Creatinine Ratio Glucose POC Glucose 247 H 83 135 H Estimat Average Glucose Hemoglobin A1c Calcium Total Bilirubin AST ALT Alkaline Phosphatase Total Protein Albumin Globulin Albumin/Globulin Ratio TSH Urine Color Urine Appearance Urine pH Ur Specific [place] Urine Protein Urine Glucose (UA) Urine Ketones Urine Blood Urine Nitrite Urine Bilirubin Urine Urobilinogen Ur Leukocyte Esterase Salicylates Urine Opiates Screen Ur Methadone, Qual Acetaminophen Urine Barbiturates Ur Phencyclidine (PCP) U Amphetamin/Meth Scrn MDMA (Ecstasy) Screen U Benzodiazepines Scrn Ur Cocaine Metabolite U Marijuana (THC) Screen Ethyl Alcohol mg/dL 11/02/19 11/02/19 11/03/19 17:09 20:21 08:10 WBC RBC Hgb Hct MCV MCH MCHC RDW Std Deviation RDW Coeff of Donna Plt Count MPV Immature Gran % (Auto) Neut % (Auto) Lymph % (Auto) [place] % (Auto) Eos % (Auto) Baso % (Auto) Immature Gran # (Auto) Neut # (Auto) Lymph # (Auto) [place] # (Auto) Eos # (Auto) Baso # (Auto) Sodium Potassium Chloride Carbon Dioxide Anion Gap BUN Creatinine Est Cr Clr Drug Dosing Est GFR ( Amer) Est GFR (Non-Af Amer) BUN/Creatinine Ratio Glucose POC Glucose 171 H 210 H 117 H Estimat Average Glucose Hemoglobin A1c Calcium Total Bilirubin AST ALT Alkaline Phosphatase Total Protein Albumin Globulin Albumin/Globulin Ratio TSH Urine Color Urine Appearance Urine pH Ur Specific [place] Urine Protein Urine Glucose (UA) Urine Ketones Urine Blood Urine Nitrite Urine Bilirubin Urine Urobilinogen Ur Leukocyte Esterase Salicylates Urine Opiates Screen Ur Methadone, Qual Acetaminophen Urine Barbiturates Ur Phencyclidine (PCP) U Amphetamin/Meth Scrn MDMA (Ecstasy) Screen U Benzodiazepines Scrn Ur Cocaine Metabolite U Marijuana (THC) Screen Ethyl Alcohol mg/dL 11/03/19 11/03/19 11/03/19 12:33 17:14 20:26 WBC RBC Hgb Hct MCV MCH MCHC RDW Std Deviation RDW Coeff of Donna Plt Count MPV Immature Gran % (Auto) Neut % (Auto) Lymph % (Auto) [place] % (Auto) Eos % (Auto) Baso % (Auto) Immature Gran # (Auto) Neut # (Auto) Lymph # (Auto) [place] # (Auto) Eos # (Auto) Baso # (Auto) Sodium Potassium Chloride Carbon Dioxide Anion Gap BUN Creatinine Est Cr Clr Drug Dosing Est GFR ( Amer) Est GFR (Non-Af Amer) BUN/Creatinine Ratio Glucose POC Glucose 175 H 120 H 178 H Estimat Average Glucose Hemoglobin A1c Calcium Total Bilirubin AST ALT Alkaline Phosphatase Total Protein Albumin Globulin Albumin/Globulin Ratio TSH Urine Color Urine Appearance Urine pH Ur Specific [place] Urine Protein Urine Glucose (UA) Urine Ketones Urine Blood Urine Nitrite Urine Bilirubin Urine Urobilinogen Ur Leukocyte Esterase Salicylates Urine Opiates Screen Ur Methadone, Qual Acetaminophen Urine Barbiturates Ur Phencyclidine (PCP) U Amphetamin/Meth Scrn MDMA (Ecstasy) Screen U Benzodiazepines Scrn Ur Cocaine Metabolite U Marijuana (THC) Screen Ethyl Alcohol mg/dL 11/04/19 11/04/19 11/04/19 08:34 12:41 17:20 WBC RBC Hgb Hct MCV MCH MCHC RDW Std Deviation RDW Coeff of Donna Plt Count MPV Immature Gran % (Auto) Neut % (Auto) Lymph % (Auto) [place] % (Auto) Eos % (Auto) Baso % (Auto) Immature Gran # (Auto) Neut # (Auto) Lymph # (Auto) [place] # (Auto) Eos # (Auto) Baso # (Auto) Sodium Potassium Chloride Carbon Dioxide Anion Gap BUN Creatinine Est Cr Clr Drug Dosing Est GFR ( Amer) Est GFR (Non-Af Amer) BUN/Creatinine Ratio Glucose POC Glucose 78 116 H 112 H Estimat Average Glucose Hemoglobin A1c Calcium Total Bilirubin AST ALT Alkaline Phosphatase Total Protein Albumin Globulin Albumin/Globulin Ratio TSH Urine Color Urine Appearance Urine pH Ur Specific [place] Urine Protein Urine Glucose (UA) Urine Ketones Urine Blood Urine Nitrite Urine Bilirubin Urine Urobilinogen Ur Leukocyte Esterase Salicylates Urine Opiates Screen Ur Methadone, Qual Acetaminophen Urine Barbiturates Ur Phencyclidine (PCP) U Amphetamin/Meth Scrn MDMA (Ecstasy) Screen U Benzodiazepines Scrn Ur Cocaine Metabolite U Marijuana (THC) Screen Ethyl Alcohol mg/dL 11/04/19 11/05/19 20:27 08:12 WBC RBC Hgb Hct MCV MCH MCHC RDW Std Deviation RDW Coeff of Donna Plt Count MPV Immature Gran % (Auto) Neut % (Auto) Lymph % (Auto) [place] % (Auto) Eos % (Auto) Baso % (Auto) Immature Gran # (Auto) Neut # (Auto) Lymph # (Auto) [place] # (Auto) Eos # (Auto) Baso # (Auto) Sodium Potassium Chloride Carbon Dioxide Anion Gap BUN Creatinine Est Cr Clr Drug Dosing Est GFR ( Amer) Est GFR (Non-Af Amer) BUN/Creatinine Ratio Glucose POC Glucose 159 H 74 Estimat Average Glucose Hemoglobin A1c Calcium Total Bilirubin AST ALT Alkaline Phosphatase Total Protein Albumin Globulin Albumin/Globulin Ratio TSH Urine Color Urine Appearance Urine pH Ur Specific [place] Urine Protein Urine Glucose (UA) Urine Ketones Urine Blood Urine Nitrite Urine Bilirubin Urine Urobilinogen Ur Leukocyte Esterase Salicylates Urine Opiates Screen Ur Methadone, Qual Acetaminophen Urine Barbiturates Ur Phencyclidine (PCP) U Amphetamin/Meth Scrn MDMA (Ecstasy) Screen U Benzodiazepines Scrn Ur Cocaine Metabolite U Marijuana (THC) Screen Ethyl Alcohol mg/dL Hospital Course (1) Depression: 10/31 - Reviewed diagnosis and treatment options, including medication, therapy, and discussion of psychosocial stressors/supports. - Increase venlafaxine XR to 225mg daily to target mood and anxiety. -Continue home dose of clonazepam. -Coordinate w/ OP psychiatrist and therapist, explore options to increase supports (?BCM) -Family meeting with . 11/01 - Continue mediations as adjusted above - Phone meeting with still needs scheduled - Coordinate care and offer encouragement for more routine outpatient kd atment - Pt was agreeable with considering case management referral 11/02 - Continue medications as above - Phone meeting with held today, remains supportive - Pt agreeable with case management referral - completed phone intake today 11/03 - Continue current medication regimen - Despite incongruent affect, patient is reporting significant improvement in mood - Consider discharge in the next day or so 11/04 - Continue current medication regimen - Coordinate discharge planning with family, as patient will require transportation home - Pt feeling as though she is approaching readiness for discharge (2) Anxiety: 10/31 - Increase SNRI as above, continue clonazepam. -Encourage group attendance and participation, work on healthy coping skills and discharge safety. 11/02 - Reporting improvement in anxiety overall - Agreeable with exploring resources that may offer assistance with caring for grandchildren at home - Family meeting with held this morning - support is ongoing (3) Diabetes: 10/31 -continue insulin, consult diabetic pharmacist, provide diabetes education. -Diabetic diet. (4) Hypertension: 11/01 - Continue home dose of lisinopril 2.5mg daily Mental Health & Subst Abuse Tx Psychiatrist Name of Psychiatrist: [facility] Date of Appointment with Psychiatrist: 11/15/19 Time of Appointment with Psychiatrist: 8:30am [facility] App[facility]ment [facility] [address] [facility] [place] [address] Therapist Name of Therapist: Kera Nguyen Brantley Therapist's Date of Therapist Appointment: 11/10/19 Time of Therapist Appointment: 2:30 pm Therapy Appointment Comment: 11/16 at 11:00am Motor Hotel Manager Name of Motor Hotel Manager: [facility] Phone Number for Motor Hotel Manager: [phone] Time of Appointment with Motor Hotel Manager: Will contact you to establish case management services Case Management Appointment Comment: [address] [place] Post Discharge Appointments Primary Care Physician Name Of Family Doctor: Leila Shen PA-C Primary Care Date of Appointment with PCP: 11/08/19 Time of Appointment with PCP: 1:45 p.m. Provider Appointment Comment: [address] [place] [address] Smoking Cessation Counseling Tobacco Cessation Medication Prescribed at Discharge: Offered & Pt Refused Contact Information Discharge Discharge Address: [address] [place] [address] [place] [address] Discharge Plan Discharge Items Patient Disposition: Home - Self-Care Reason For Visit: MDD, RECURRENT SEVERE Discharge Diagnosis: same Activity: Resume your previous activity Activity Comment: use cane Non-emergency contact: Primary Care Provider, Psychiatrist and Assembler Billiard Table Call non-emergency contact if: you have any medication questions and your symptoms worsen Follow-up/Referrals: PCP,NO [Primary Care Provider] - Diet: Carb Consistent or DM2 Addtl Attending Provider Instructions: SPECIAL CARE INSTRUCTIONS: 1. Follow through with your scheduled aftercare appointments. If unable to keep an appointment, please call to reschedule. 2. Take your medication only as prescribed. Medication should not be changed or stopped without the approval of your doctor. In the event of worsening symptoms or concerns about side effects, contact your doctor immediately. 3. Utilize new healthy coping skills, anger management skills, and stress management skills learned during your hospitalization. Journal feelings and process them with a support person. Identify stressors or situations that may result in relapse, deterioration or inappropriate behaviors and develop a plan to deal with those issues. 4. If your coping skills are ineffective and you are in crisis, contact your outpatient providers for direction. If unable to reach your providers, please call the CAN HELP LINE AT or go to the closest Emergency Room. 5. Avoid alcohol and un-prescribed drugs. 6. You have been provided with the Mental Health Advance Directives Pamphlet for your review. AFTERCARE APPOINTMENTS: * Please call your insurance company prior to your scheduled appointment to confirm your aftercare providers are covered. Take your insurance information to your appointments. WHO TO CALL AND WHEN: Medical Emergencies: For questions or emergencies related to your hospital stay, please contact the Inpatient Behavioral Health Unit at [phone]. A high school music director is on-call 22/06 for the Behavioral Health Unit for emergencies At any time you feel your situation is an emergency, you may also call 911 immediately. Your Doctors Instructions noted above were prepared by provider Cherrie Mancia MD. Pending Studies at Discharge: No Stand-Alone Forms: My [facility], Smoking Cessation, Suicide Prevention Resources Medications and DC Order Prescriptions: New venlafaxine 75 mg Capsule,Extended Release 24hr 75 mg PO QAM Qty: 30 RF: 0 Continued atorvastatin 40 mg Tablet 40 mg PO DAILY RF: 0 clonazepam [Klonopin] 0.5 mg Tablet 0.5 mg PO BID RF: 0 venlafaxine [Effexor XR] 150 mg Capsule,Extended Release 24hr 150 mg PO DAILY RF: 0 lisinopril 2.5 mg Tablet 2.5 mg PO DAILY RF: 0 Basalgar Insulin 40 units INJ BID RF: 0 Discharge Orders: Discharge Order (Routine); Ordered 11/05/19 Ordered By: Cherrie Thomas/Other Patient Handouts: Diabetes Dethistler Operator Complications, Diabetes Healthy Meals, Diabetes Carbs, Diabetes Exercise Benefits, Diabetes Activity Tips, Diabetes Living Life, Diabetes Manage A1C Test Admission Data Admit Date/Time: 10/31/19 00:48 Attending Provider: Saida,Magdalena C Admit Provider: Haris Bojorquez Primary Care Provider: PCP,NO Other Interventions: Discharge Summary Assessment (RN) Last Done: 11/05/19 10:26 PSY Interdisciplinary Discharge Planning Last Done: 11/05/19 10:17 DC Date/Time DO NOT enter until pt leaves facility: 11/05/19 11:00 Coding Level of Care Code 00075 D/C day mgmt > 30 min Diagnoses Depression F33.2 Active/Remission status: currently active Depression Type: major depressive disorder Major depression episode severity: severe Major depression recurrence: recurrent Psychotic features: without psychotic features Anxiety F41.9 Diabetes E11.9 Hypertension I10
== END 2019-11-05 11:00 | disposition home or self-care (01) | DRG 885 ==
LOC: ED 20:29 → 3S 10-31 00:48